=== PATIENT | male | born 1975 ===

== ENCOUNTER → 2020-08-24 09:45 | Outpatient (BNVA) | payer OTHER, SELFPAY | PROVIDERS: PCP Internal Medicine; Referring Provider Internal Medicine; Visit Provider Nurse Practitioner | DX: K58.1 Irritable bowel syndrome with constipation (principal); K21.9 Gastro-esophageal reflux disease without esophagitis | CPT/HCPCS: Q3014 ==

== ENCOUNTER → 2021-02-22 09:51 | Outpatient (BNVA) | payer MEDICARE, MEDICAID, SELFPAY | PROVIDERS: PCP Internal Medicine; Visit Provider Nurse Practitioner | DX: Z13.89 Encounter for screening for other disorder (principal) | CPT/HCPCS: Q3014 ==

== ENCOUNTER → 2021-08-24 10:11 | Outpatient (BNVA) | payer OTHER, SELFPAY | PROVIDERS: PCP Physician Assistant; Referring Provider Physician Assistant; Visit Provider Nurse Practitioner | DX: K21.9 Gastro-esophageal reflux disease without esophagitis (principal); K58.1 Irritable bowel syndrome with constipation | CPT/HCPCS: 99212 ==

== ENCOUNTER → 2022-02-22 09:02 | Outpatient (BNVA) | payer MEDICARE, MEDICAID, SELFPAY | PROVIDERS: PCP Physician Assistant; Referring Provider Physician Assistant; Visit Provider Nurse Practitioner | DX: Z12.11 Encounter for screening for malignant neoplasm of colon (principal); K21.9 Gastro-esophageal reflux disease without esophagitis; K58.1 Irritable bowel syndrome with constipation | CPT/HCPCS: 99212 ==

== ENCOUNTER 2022-02-23 07:54 | Outpatient (REF) | payer OTHER, MEDICAID, SELFPAY ==
[2022-02-23 08:17] LABS: MANUAL DIFF FLAG NO
[2022-02-23 08:38] LABS: Basophils Percent Auto 0.4 % (0-2); Eosinophils Percent Auto 0.6 % (0-4); Hematocrit 43.2 % (42.0-52.0); Hemoglobin 14.4 g/dl (14.0-18.0); Imm Gran Abs Auto 0.02 X10*3/uL (0.00-0.03); Imm Gran Pct Auto 0.4 % (0.0-0.4); Lymphocytes Absolute Auto 1.3 X10*3/uL (1.2-4.9); Mean Corpuscular HGB Conc 33.3 g/dl (31.0-36.0); Mean Corpuscular Hemoglobin 29.1 pg (27.0-33.0); Mean Corpuscular Volume 87.4 fL (80.0-98.0); Mean Platelet Volume 9.8 fL (9.4-12.4); Monocytes Absolute Auto 0.6 X10*3/uL (0.1-1.2); Neutrophils Absolute Auto 3.2 x10*3/uL (2.0-8.3); Neutrophils Percent Auto 61.6 % (45-73); Platelet Count 197 X10*3/uL (160-400); Red Blood Count 4.94 X10*6/uL (4.60-5.80); White Blood Count 5.2 X10*3/uL (4.8-10.8)
[2022-02-23 09:10] LABS: Alanine Aminotransferase 21 U/L (0-40); Albumin Level 4.3 g/dL (3.5-5.0); Alkaline Phosphatase 98 U/L (39-117); Anion Gap 11 (12-20); Aspartate Amino Transferase 21 U/L (5-37); Bilirubin Total 0.5 mg/dL (0.0-1.0); Blood Urea Nitrogen 9 mg/dL (9-16); Calcium 9.3 mg/dL (8.4-10.2); Carbon Dioxide 28 mmol/L (22-29); Chloride 103 mmol/L (96-108); Estimated Glomerular Filt Rate > 60; Glucose Random 111 mg/dL (60-115); Potassium 3.8 mmol/L (3.3-5.1); Sodium 138 mmol/L (135-145); Total Protein 7.2 g/dL (6.5-8.0)
== END 2022-02-23 07:55 | disposition home or self-care (01) ==
LOC: HO.LAB 07:54
PROVIDERS: PCP Internal Medicine; Visit Provider Nurse Practitioner
DX: Z12.11 Encounter for screening for malignant neoplasm of colon (principal)
CPT/HCPCS: 36415; 80053; 85025

== ENCOUNTER 2022-09-06 07:26 | Day surgery (SDC) | payer OTHER, SELFPAY ==
--- NOTE | 2022-09-05 12:47 | P.CONAN_ITS ---
Documented by User: Rosi Juarez NP 09/05/22 12:48 HPI - Anesthesia Eval Consult details Narrative: 47yo M for Colonoscopy PMF Active Problems Active Problems: All Active Problems (Updated 08/31/22 @ 15:20 by Tiseha Holt, RN) Irritable bowel syndrome with constipation (Acute) GERD (gastroesophageal reflux disease) (Acute) Annual physical exam (Acute) Screening for diabetes mellitus (DM) (Acute) Screening for hypothyroidism (Acute) Screening for hypercholesterolemia (Acute) Colon cancer screening (Acute) Cerebral palsy (Acute) Past Medical History Medical History (Updated 08/31/22 @ 15:20 by Tiesha Holt RN) Cerebral palsy GERD (gastroesophageal reflux disease) IBS (irritable bowel syndrome) Family History Family History (Updated 07/19/22 @ 09:33 by Tyrone Chang PA-C) Father Myocardial infarction Mother Diabetes mellitus HTN (hypertension) Myocardial infarction, Onset Age: 66 Brother Cerebral palsy Maternal Grandfather Skin cancer Maternal Grandmother Myocardial infarction Surgical History Surgical History (Updated 09/06/22 @ 07:37 by Leslie Bassett RN) History of esophagogastroduodenoscopy (EGD) History of surgery on lower extremity No history of previous surgery Social History Social History (Updated 07/19/22 @ 09:33 by Tyrone Chang PA-C) Household Members: Family Housing: House Alcohol intake: never Patient Tobacco Use Status: Never used Tobacco Tobacco use type: Cigarette e-Cigarette/Vaping Use: Never Used Second Hand Smoke Exposure: No service: No Current occupational status: disabled Meds Allergies Allergy/AdvReac Type Severity Reaction Status Date / Time No Known Allergies Allergy Verified 08/31/22 15:21 [No Known Allergies*] Exam Exam Date and Time: September 05, 2022 1247 Pertinent Lab Results Pertinent Lab Results: Laboratory Tests 02/23/22 02/23/22 08:15 08:15 WBC 5.2 Hgb 14.4 Hct 43.2 Plt Count 197 Sodium 138 Potassium 3.8 Chloride 103 Carbon Dioxide 28 BUN 9 Creatinine 0.79 Assessment and Plan Assessment Anesthesia Assessment: Chart Reviewed Documented by User: Chase Wood MD 09/06/22 19:46 [facility] Past Medical History Medical History (Updated 08/31/22 @ 15:20 by Tiesha Holt, TUAN) Cerebral palsy GERD (gastroesophageal reflux disease) IBS (irritable bowel syndrome) Functional capacity: wheelchair bound Family History Family History (Updated 07/19/22 @ 09:33 by Tyrone Chang PA-C) Father Myocardial infarction Mother Diabetes mellitus HTN (hypertension) Myocardial infarction, Onset Age: 66 Brother Cerebral palsy Maternal Grandfather Skin cancer Maternal Grandmother Myocardial infarction Family history of problems with anesthesia: No Surgical History Surgical History (Updated 09/06/22 @ 07:37 by Leslie Bassett, TUAN) History of esophagogastroduodenoscopy (EGD) History of surgery on lower extremity No history of previous surgery History of Problems with Anesthesia: No Social History Social History (Updated 07/19/22 @ 09:33 by Tyrone Chang PA-C) Household Members: Family Housing: House Alcohol intake: never Patient Tobacco Use Status: Never used Tobacco Tobacco use type: Cigarette e-Cigarette/Vaping Use: Never Used Second Hand Smoke Exposure: No service: No Current occupational status: disabled Meds Allergies Allergy/AdvReac Type Severity Reaction Status Date / Time No Known Allergies Allergy Verified 08/31/22 15:21 [No Known Allergies*] Exam Airway Mallampati Class: III TM Dist: >3cm Neck ROM: Full Loose/Missing/Broken Teeth: Yes Heart: S1,S2 Lungs: b/l breath sounds Assessment and Plan Assessment Anesthesia Assessment: Anesthesia Plan Discussed Final Anesthetic Review Family History of Problems with Anesthesia: No History of Problems with Anesthesia: No NPO: Yes ASA Class: III Final Preanesthetic Review: Meds/Allgs Chart Reviewed, Consent Obtained/Reviewed and Anes Risks/Benef Reviewed Patient Risk: Intermediate Procedure Risk: Intermediate Anesthetic Plan Anesthetic Plan: MAC: Disposition: Standard PACU
[2022-09-06 07:34] VITALS: BMI 25.4
[2022-09-06 07:59] VITALS: BP 133/80; PULSE 99; RESP 15; TEMP 36.6; O2SAT 99
[2022-09-06] MEDS: Lactated Ringers 1,000 ML 100 ML IVCONT (08:01)
--- NOTE | 2022-09-06 08:29 | MHC.SHP ---
Pre-Procedural Eval Section A Date of Service: 09/06/22 Section B Chief Complaint: screening Relevant Family History (Specify if Yes): No Relevant Social History: None Present Medications: see Short Stay Collaborative assessment Medical History: Significant History (Cerebral palsy GERD (gastroesophageal reflux disease) IBS (irritable bowel syndrome)) History of Previous Operations: Relevant previous surgery/procedure and date(s) Allergies: Allergies Allergy/AdvReac Type Severity Reaction Status Date / Time No Known Allergies Allergy Verified 08/31/22 15:21 [No Known Allergies*] Review of Systems Sugical H&P ROS: Negative: Constitution, Cardiovascular, Respiratory, Neurological, Psychiatric, Hem-Onc, Allergic/Immunologic, Gastrointestinal, Genitourinary, Musculoskeletal, Integumentary, Endocrine and Eyes/Ears/Nose/Throat Exam Surgical H&P Exam: Normal: HEENT, Normal: Heart, Normal: Lungs, Normal: Extremities, Normal: Abdomen and Normal: Skin and Significant Findings: Neurological (reduced mobility ) Plan Diagnosis/Plan: Unchanged I have reviewed the history and physical and performed a pertinent physical examination on my patient. No changes have occurred unless specified.
--- NOTE | 2022-09-06 08:36 | P.OP_ITS ---
Operative Note Operative Note Date of Service: 09/06/22 Narrative: Operative Information Procedure Description: Colonoscopy Indication: screening Anesthesia: MAC COLONOSCOPY Instrument: Olympus variable stiffness pediatric scope 190L Colonoscopy Monitoring: Vital signs and clinical assessment, continuous EKG monitoring, Pulse oximetry, Carbon Dioxide monitoring and blood pressure monitoring were done throughout the procedure. Colon withdrawal time was 8 minutes. Procedure: The patient was placed in the left lateral decubitis position and pre-procedure medications were administered. After a digital rectal examination of the ano-rectum, the video colonoscope was inserted into the rectum and advanced through the colon to the cecum/TI. The colonoscope was slowly withdrawn in a retrograde panoramic fashion and the colon mucosa was carefully examined including a retroflexed view of the rectum. Findings and interventions are described below. Procedure Difficulty: moderate due to tight sigmoid Findings: Terminal Ileum-normal Cecum:normal Ascending Colon: normal Transverse Colon -normal Descending Colon:normal Sigmoid Colon: x1 sessile polyp 10-12 mm removed with cold snare and another 8- 10 mm sessile polyp removed with cold forceps Rectum: Retroflexion with small internal hemorrhoids, grade I Anorectum - normal Colon preparation: [place] Bowel Preparation Scale Right colon; 2 Transverse colon: 3 Left colon; 3 (0 = Unprepared colon segment with mucosa not seen due to solid stool that cannot be cleared. 1 = Portion of mucosa of the colon segment seen, but other areas of the colon segment not well seen due to staining, residual stool and/or opaque liquid. 2 = Minor amount of residual staining, small fragments of stool and/or opaque liquid, but mucosa of colon segment seen well. 3 = Entire mucosa of colon segment seen well with no residual staining, small fragments of stool or opaque liquid) Impression and Post Procedure Diagnosis: polyps internal hemorrhoids Plan: High fiber diet leaflet Avoid straining at stool, epsom salts and sitz bath, anusol supps or cream Repeat Colonoscopy in 3 years deu to adenomatous appearing polyps or earlier if clinically indicated Above findings were reviewed with the patient and relevant handouts were provided if indicated.
[2022-09-06 09:06] VITALS: BP 106/63; PULSE 104; RESP 16; TEMP 36.6; O2SAT 98
[2022-09-06 09:21] VITALS: BP 108/73; PULSE 94; RESP 16; O2SAT 100
[2022-09-06 09:36] VITALS: BP 112/75; PULSE 95; RESP 16; O2SAT 99
[2022-09-06 09:49] VITALS: BP 131/75; PULSE 94; RESP 18; TEMP 36.5; O2SAT 100
== END 2022-09-06 10:30 | disposition home or self-care (01) ==
PROVIDERS: PCP Internal Medicine; Visit Provider Internal Medicine Gastroenterology
PROC: 0DJD8ZZ Inspection of Lower Intestinal Tract, Via Natural or Artificial Opening Endoscopic (ICD-10-PCS; CPT 45378; principal; 2022-09-06 08:30)
DX: Z12.11 Encounter for screening for malignant neoplasm of colon (principal); D12.5 Benign neoplasm of sigmoid colon; K64.0 First degree hemorrhoids; K21.9 Gastro-esophageal reflux disease without esophagitis; K58.1 Irritable bowel syndrome with constipation; G80.9 Cerebral palsy, unspecified; Z79.899 Other long term (current) drug therapy
CPT/HCPCS: 45385; 45380; 88305

== ENCOUNTER → 2022-09-20 10:22 | Outpatient (BNVA) | payer OTHER, SELFPAY | PROVIDERS: PCP Internal Medicine; Visit Provider Nurse Practitioner | DX: D12.6 Benign neoplasm of colon, unspecified (principal); K21.9 Gastro-esophageal reflux disease without esophagitis; K58.1 Irritable bowel syndrome with constipation; Z98.890 Other specified postprocedural states | CPT/HCPCS: 99212 ==

== ENCOUNTER → 2023-03-14 09:49 | Outpatient (BNVA) | payer OTHER, SELFPAY | PROVIDERS: Visit Provider Nurse Practitioner | DX: K58.1 Irritable bowel syndrome with constipation (principal); K21.9 Gastro-esophageal reflux disease without esophagitis; D12.6 Benign neoplasm of colon, unspecified; Z98.890 Other specified postprocedural states | CPT/HCPCS: 99212 ==

== ENCOUNTER 2023-10-10 09:51 | Outpatient (AMB) | payer OTHER, SELFPAY ==
[2023-10-10 09:54] VITALS: BP 132/77; PULSE 89; BMI 22.2
--- NOTE | 2023-10-10 09:54 | MHC.OFFVIS ---
Intake Vital Signs 10/10/23 09:54 Height 5 ft 2 in Weight 121 lb 4.068 oz BMI 22.2 BP 132/77 Blood Pressure Location Lt brachial Position Sitting Pulse 89 Intake Visit Reasons: 6 month fu Intake Note: Patient presents to in office visit today in 6 months follow up. CC: Patient denies having any GI issues today. [employer]ing Cutting Machine Operator Required: Yes Accompanied by: Sister Allergies No Known Allergies [No Known Allergies*] Allergy (Verified 10/10/23 09:59) HPI 6 month fu HPI Details Assessment & Plan (1) Irritable bowel syndrome with constipation: Code(s): K58.1 - Irritable bowel syndrome with constipation Plan: Dominican #Sister translates per pt request He continues to do well with his IBS and GERD on is pantoprazole and dicyclomine. A return office visit in 6 months (2) GERD (gastroesophageal reflux disease): Code(s): K21.9 - Gastro-esophageal reflux disease without esophagitis Qualifiers: Esophagitis presence: without esophagitis Qualified Code(s): K21.9 - Gastro-esophageal reflux disease without esophagitis (3) Tubular adenoma of colon: Comment: 2021 scope repeat in 3 years aeb Code(s): D12.6 - Benign neoplasm of colon, unspecified (4) H/O colonoscopy: Code(s): Z98.890 - Other specified postprocedural states Medications: Refilled pantoprazole 40 mg PO DAILY 90 tabs 2RF K21.9 - Gastro-eso phageal reflux dis ease without esoph agitis dicyclomine 20 mg PO QID 360 t abs 6RF K58.1 - Irritable bowel syndrome wit h constipation, K2 1.9 - Gastro-esoph ageal reflux disea se without esophag itis TODAY'S VISIT Dominican #Wyatt and Lynnette-though his sister usually translates for him and she is with him today He continues to do very well on his pantoprazole and his dicyclomine. He remains satisfied with his GI regimen. He will be due in 2024 for repeat colonoscopy. Return office visit in 6 months [facility] Medical History IBS (irritable bowel syndrome) GERD (gastroesophageal reflux disease) Cerebral palsy Surgical History (Updated 10/10/23 @ 11:06 by RAJEEV Bellamy) History of colonoscopy History of surgery on lower extremity History of esophagogastroduodenoscopy (EGD) Family History Father Myocardial infarction Mother Diabetes mellitus HTN (hypertension) Myocardial infarction, Onset Age: 66 Brother Cerebral palsy Maternal Grandfather Skin cancer Maternal Grandmother Myocardial infarction Social History Household Members: Family Housing: House Alcohol intake: never Patient Tobacco Use Status: Never used Tobacco Tobacco use type: Cigarette e-Cigarette/Vaping Use: Never Used Second Hand Smoke Exposure: No service: No Current occupational status: disabled Review of Systems Const Denies fatigue, Denies fever(s), Denies night sweats, Denies poor appetite and Denies weight loss ENT Reports Normal hearing present, Denies dysphagia, Denies odynophagia, Denies throat swelling and Denies tongue swelling Card Reports no additional complaints Resp Reports no additional complaints GI Denies abdominal pain, Denies melena, Denies bloating, Denies hematochezia, Denies constipation, Reports GI cramping, Denies dysphagia, Denies excessive flatus, Denies early satiety, Reports heartburn, Denies diarrhea, Denies nausea, Denies odynophagia, Denies vomiting and Denies hematemesis Musc Reports abnormal gait Skin/Breast Denies pruritus, Denies lesions, Denies rash and Denies jaundice Neuro Reports Normal hearing present, Denies Abnormal speech present and Reports abnormal gait Endo Denies fatigue Aller/Immun Denies throat swelling and Denies tongue swelling Physical Exam Vital Signs: Last Vital Signs Pulse 89 10/10/23 09:54 BP 132/77 10/10/23 09:54 BMI result Body Mass Index 22.2 Const General: cooperative, no acute distress, well developed and well groomed Nutritional Appearance: well nourished, obese and overweight Orientation/consciousness: oriented to person, oriented to place and oriented to time Limitations: language barrier and ambulation with walker HEENT Head: Yes normocephalic and Yes atraumatic Eyes General: appearance normal, both eyes and all related structures Pupils: Equal, round and reactive pupils present Neck Neck: Yes normal visual inspection and Yes no lymphadenopathy Thyroid: Thyroid normal Resp Effort & Inspection: normal respiratory effort and able to speak in complete sentences Auscultation: clear to auscultation bilaterally Cardio Rate: regular rate Rhythm: regular rhythm Heart sounds: Normal, physiologic split S2 sound present Peripheral pulses: radial pulses present and posterior tibial pulses present GI Inspection: No distended and No Abdominal panniculus present Palpation (GI): Soft to palpation, nontender, no guarding, not rigid and No hepatosplenomegaly present Percussion: Yes normal to percussion Auscultation: normal bowel sounds Rectal Exam - Male: Yes deferred Skin General skin exam: no rashes or lesions noted, turgor normal, skin not dry, no jaundice, No spider nevi and no striae Rashes: no rashes Nails: normal Neuro General: oriented to person, oriented to place and oriented to time Cranial nerves: Yes Equal, round and reactive pupils present and Yes Normal hearing present Speech: No Abnormal speech present Extrem General: Yes normal to inspection, No clubbing, No cyanosis and No edema Psych Appearance: grossly normal and well kempt Mental Status: mental status grossly normal Speech and movement: Normal speech and movement present Affect: normal affect Attitude: cooperative Thought process: Normal thought process present and not confabulating Thought content: Normal thought content present Insight: Limited insight present (Psych) Judgement: Limited judgement present (Psych) Assessment & Plan Assessment & Plan (1) GERD (gastroesophageal reflux disease): Code(s): K21.9 - Gastro-esophageal reflux disease without esophagitis Qualifiers: Esophagitis presence: without esophagitis Qualified Code(s): K21.9 - Gastro-esophageal reflux disease without esophagitis (2) Irritable bowel syndrome with constipation: Code(s): K58.1 - Irritable bowel syndrome with constipation (3) Tubular adenoma of colon: Comment: 2021 scope repeat in 3 years aeb Code(s): D12.6 - Benign neoplasm of colon, unspecified Plan Dominican #Wyatt and Tachira-though his sister usually translates for him and she is with him today He continues to do very well on his pantoprazole and his dicyclomine. He remains satisfied with his GI regimen. He will be due in 2024 for repeat colonoscopy. Return office visit in 6 months Medications: Refilled dicyclomine 20 mg PO QID 360 tabs 6RF K21.9 - Gastro-esophageal reflux disease without esophagitis, K58.1 - Irritable bowel syndrome with constipation pantoprazole 40 mg PO DAILY 90 tabs 2RF K21.9 - Gastro-esophageal reflux disease without esophagitis Coding Level of Care Code Est Pt Level 3 (61602) Diagnoses Gastroesophageal reflux disease without esophagitis K21.9 Esophagitis presence: without esophagitis Irritable bowel syndrome with constipation K58.1 Tubular adenoma of colon D12.6
== END 2023-10-10 10:04 | disposition home or self-care (01) ==
PROVIDERS: PCP Internal Medicine; Visit Provider Nurse Practitioner
DX: K21.9 Gastro-esophageal reflux disease without esophagitis (principal); K58.1 Irritable bowel syndrome with constipation; D12.6 Benign neoplasm of colon, unspecified
CPT/HCPCS: 99213

== ENCOUNTER → 2023-10-10 09:51 | Outpatient (BNVA) | payer OTHER, SELFPAY | PROVIDERS: PCP Internal Medicine; Visit Provider Nurse Practitioner | DX: K21.9 Gastro-esophageal reflux disease without esophagitis (principal); K58.1 Irritable bowel syndrome with constipation; D12.6 Benign neoplasm of colon, unspecified | CPT/HCPCS: 99212 ==

== ENCOUNTER 2023-11-23 11:05 | Outpatient (AMB) | payer OTHER, SELFPAY ==
--- NOTE | 2023-11-23 11:07 | MHC.PC.OV ---
Vital Signs 11/23/23 11:08 Height 5 ft 2 in Weight 120 lb BMI 21.9 BP 120/80 Blood Pressure Location Lt brachial Position Sitting Intake Visit Reasons: Toe Discoloration Intake Note: Patient here c/o right foot toe/nail discoloration Manager Mental Health Required: No Accompanied by: Sister Allergies No Known Allergies [No Known Allergies*] Allergy (Verified 11/23/23 11:29) Medication List - Last Reconciled 11/23/23 by Nano Ramirez MD dicyclomine 20 mg PO QID pantoprazole 40 mg PO DAILY Shower Chair As directed Tobacco use date assessed: 11/23/23 Dental Screening Dental Screen Date: 11/23/23 Did you have a dental visit in the last 12 months?: Yes Did you have a dental problem in the last 6 months where you did not have access to dental care?: No Was dental information given to patient?: Patient has dentist HPI HPI Comments History of Present Illness Details This is a 48-year-old male with GERD and cerebral palsy that comes today accompanied by causing which is the sales agent casualty insurance complaining of right foot pain more prominent in the 5th toe when walking and onychogryphosis. The 5th toe is mildly red but not swollen. The pain has been present for few days. No previous trauma. He has cerebral palsy and walks with a walker with no strength in lower limbs. GERD stable with PPIs. Toenails are deformed and thick due to onychogriposis and is really hard to cut them and will be refer to podiatry. [facility] Medical History (Updated 11/23/23 @ 11:34 by Nano Ramirez MD) IBS (irritable bowel syndrome) GERD (gastroesophageal reflux disease) Cerebral palsy Surgical History History of colonoscopy History of surgery on lower extremity History of esophagogastroduodenoscopy (EGD) Family History (Updated 11/23/23 @ 11:15 by JHON Perez) Father Myocardial infarction Mother Diabetes mellitus HTN (hypertension) Myocardial infarction, Onset Age: 66 Brother Cerebral palsy Maternal Grandfather Skin cancer Maternal Grandmother Myocardial infarction Social History Household Members: Family Housing: House Alcohol intake: never Patient Tobacco Use Status: Never used Tobacco Tobacco use type: Cigarette e-Cigarette/Vaping Use: Never Used Second Hand Smoke Exposure: No service: No Current occupational status: disabled Cognitive needs: Yes Hearing needs: No Vision needs: No Questionnaire PHQ-9 Over the last 2 weeks, how often have you been bothered by any of the following problems? 1. Little interest or pleasure in doing things: not at all 2. Feeling down, depressed, or hopeless: not at all 3. Trouble falling or staying asleep, or sleeping too much: not at all 4. Feeling tired or having little energy: not at all 5. Poor appetite or overeating: not at all 6. Feeling bad about yourself - or that you are a failure or have let yourself or your family down: not at all 7. Trouble concentrating on things, such as reading the newspaper or watching television: not at all 8. Moving or speaking so slowly that other people could have noticed. Or the opposite - being so fidgety or restless that you have been moving around a lot more than usual: not at all 9. Thoughts that you would be better off or of hurting yourself in some way: not at all Total score: 0 Depression Screening Interpretation: Negative Depression Screening Done: Yes 58389 - PHQ-9 Billing: Yes Source: Developed by Drs. Tevin Mg, Claudia Douglas, Jet Urbano and colleagues, with an educational desiree from [employer]. Thrive Questionnaire Date Thrive assessed: 11/23/23 I am a: Patient What is your living situation today?: I have a steady place to live Within the past 12 months, did the food you bought not last and you didn't have the money to get more?: Never true Within the past 12 months, did you worry whether your food would run out before you got money to buy more?: Never true Do you have trouble paying for medicines?: No Do you have trouble getting transportation to medical appointments?: No Do you have trouble paying your heating and electricity bill?: No Do you have trouble taking care of your child, family member or friend?: No Do you have trouble with day-to-day activities such as bathing, preparing meals, shopping, managing finances, etc.?: Yes Are you currently unemployed and looking for a job?: No Are you interested in more education?: No Please select the resources that you would like help with: None Currently or been in a relationship where the following occur: no concerns reported THRIVE Score: 0 AUDIT C Alcohol Use Questionnaire (AUDIT-C) 1. How often do you have a drink containing alcohol?: Never Total Score: 0 ALANNA-7 AMB Questionnaire ALANNA-7 Date ALANNA - 7 assessed: 11/23/23 Feeling nervous, anxious, or on edge: 0 = Not at all Not being able to stop or control worryin = Not at all Worrying too much about different things: 0 = Not at all Trouble relaxin = Not at all Being so restless that it is hard to sit still: 0 = Not at all Becoming easily annoyed or irritable: 0 = Not at all Feeling afraid as if something awful might happen: 0 = Not at all Total ALANNA-7 score (0-4 normal; 5-9 mild; 10-14 moderate; 15-21 severe): 0 Source: Developed by Drs. Tevin Mg, Claudia Douglas, Jet Urbano and colleagues, with an educational desiree from [employer]. ALANNA-7 Assessment Billing ALANNA-7 Assessment Tool: ALANNA-7 Assessment 27093 Review of Systems Const All systems reviewed & are unremarkable except as noted in HPI and below Eyes Reports no additional complaints, Denies change in vision and Denies other visual disturbances Card Denies chest pain at rest, Denies chest pain with activity, Denies edema, Denies irregular heart rhythm, Denies claudication, Denies dyspnea, Denies dyspnea on exertion, Denies orthopnea, Denies paroxysmal nocturnal dyspnea and Denies slow heart rate Resp Denies cough, Denies dyspnea and Denies dyspnea on exertion GI Denies abdominal pain, Denies change in bowel habits, Denies excessive flatus, Denies nausea and Denies vomiting Denies urinary hesitancy, Denies urinary incontinence and Denies urinary urgency Musc Denies abnormal gait, Denies atrophy, Denies deformity and Denies limited range of motion Skin/Breast Denies bleeding lesions, Denies changing lesions and Denies rash Neuro Denies abnormal gait, Denies behavioral changes and Denies lack of coordination Psych Denies behavioral changes Physical exam (Primary Care) Vital Signs: Last Vital Signs BP 120/80 11/23/23 11:08 BMI result Body Mass Index 21.9 Tobacco/Smoking Status: Tobacco use Status Tobacco use date assessed 11/23/23 11/23/23 11:16 Patient Tobacco Use Status Never used Tobacco 11/23/23 11:16 Tobacco use type Cigarette 11/23/23 11:16 e-Cigarette/Vaping Use Never Used 11/23/23 11:16 PHQ-9: PHQ-9 Score PHQ-9: Total score 0 11/23/23 11:35 Depression Screening Interpretation: Negative Thrive Assessment: Date of Thrive Assessment Date Thrive assessed 11/23/23 11/23/23 11:16 Currently or been in a relationship where the following occur: no concerns reported Const Limitations: ambulation with walker Eyes General: appearance normal, both eyes and all related structures Eyelids: Yes eyelids normal Conjunctivae: conjunctivae normal Neck Neck: Yes normal visual inspection and Yes supple Resp Effort & Inspection: normal respiratory effort Auscultation: clear to auscultation bilaterally Cardio Jugular venous distension: no JVD Rate: regular rate Rhythm: regular rhythm Heart sounds: S1 normal heart sound present and S2 normal heart sound present Psych Appearance: grossly normal Assessment and Plan Assessment & Plan (1) Cerebral palsy: Code(s): G80.9 - Cerebral palsy, unspecified Qualifiers: Cerebral palsy type: unspecified type Qualified Code(s): G80.9 - Cerebral palsy, unspecified Plan: Continue the use of a walker. (2) Onychogryposis of toenail: Code(s): L60.2 - Onychogryphosis Plan: Referred to Podiatry. (3) Right foot pain: Code(s): M79.671 - Pain in right foot Plan: X-ray ordered. (4) GERD (gastroesophageal reflux disease): Code(s): K21.9 - Gastro-esophageal reflux disease without esophagitis Qualifiers: Esophagitis presence: without esophagitis Qualified Code(s): K21.9 - Gastro-esophageal reflux disease without esophagitis Plan: Continue PPIs. Orders: Orders XR foot RT 2V Today M79.671 - Pain in right foot Lipid Panel Today E78.5 - Hyperlipidemia, unspecified Vitamin D 25-OH Total Today E55.9 - Vitamin D deficiency, unspecified Comprehensive [place]. Panel Fast Today K21.9 - Gastro-esophageal reflux disease without esophagitis Referrals Podiatry Referral L60.2 - Onychogryphosis, M79.671 - Pain in right foot Medications: New naproxen 250 mg PO BID PRN 10 tabs 0RF pain 5 days Coding Level of Care Code Est Pt Level 4 (65898) Diagnoses Cerebral palsy, unspecified type G80.9 Cerebral palsy type: unspecified type Onychogryposis of toenail L60.2 Right foot pain M79.671 Gastroesophageal reflux disease without esophagitis K21.9 Esophagitis presence: without esophagitis Additional Codes ALANNA-7 Assessment Billing - ALANNA-7 Assessment Tool: ALANNA-7 Assessment 63064 ([id number]) Time Spent (min) 22
[2023-11-23 11:08] VITALS: BP 120/80; BMI 21.9
== END 2023-11-23 11:37 | disposition home or self-care (01) ==
PROVIDERS: PCP Internal Medicine; Visit Provider Internal Medicine
DX: G80.9 Cerebral palsy, unspecified (principal); L60.2 Onychogryphosis; M79.671 Pain in right foot; K21.9 Gastro-esophageal reflux disease without esophagitis
CPT/HCPCS: 99214

== ENCOUNTER 2023-11-23 11:45 | Outpatient (REF) | payer OTHER, SELFPAY ==
--- NOTE | ~2023-11-23 | XR_ITS ---
EXAMINATION: XR FOOT, RIGHT CLINICAL INFORMATION: Pain in right foot. COMPARISON: None available. TECHNIQUE: AP, lateral, and oblique views of the right foot. FINDINGS: Bones are diffusely demineralized. Pes planus deformity present with associated deformity and flexion of the toes of indeterminate age and etiology. Evaluation of the toes, particularly the second, fourth and fifth toes, is limited due to flexion. Metatarsus adductus, hallux valgus with mild degenerative changes. XR/XR foot RT 2V IMPRESSION: Bones are diffusely demineralized. Pes planus deformity with associated deformity and flexion of the toes of indeterminate age and etiology. Metatarsus adductus, hallux valgus with mild degenerative changes in the first MTP joint. Recommend follow-up imaging in 10-14 days if fracture is suspected.
== END 2023-11-23 11:46 | disposition home or self-care (01) ==
LOC: HO.XRAY 11:45
PROVIDERS: PCP Internal Medicine; Visit Provider Internal Medicine
DX: M79.671 Pain in right foot (principal)
CPT/HCPCS: 73620

== ENCOUNTER 2023-11-30 07:05 | Outpatient (REF) | payer OTHER, SELFPAY ==
[2023-11-30 08:08] LABS: Alanine Aminotransferase 16 U/L (0-40); Albumin Level 4.3 g/dL (3.5-5.0); Alkaline Phosphatase 93 U/L (39-117); Anion Gap 13 (12-20); Aspartate Amino Transferase 18 U/L (5-37); Bilirubin Total 0.3 mg/dL (0.0-1.0); Blood Urea Nitrogen 12 mg/dL (9-16); Calcium 9.4 mg/dL (8.4-10.2); Carbon Dioxide 28 mmol/L (22-29); Chloride 104 mmol/L (96-108); Cholesterol 200 mg/dL (<200); Estimated Glomerular Filt Rate > 60; Glucose Fasting 120 mg/dL (60-99); HDL Cholesterol 55 mg/dL (>40); LDL Cholesterol Calculated 135 mg/dL (<100); Potassium 3.9 mmol/L (3.3-5.1); Sodium 141 mmol/L (135-145); Total Protein 7.5 g/dL (6.5-8.0); Triglycerides 53 mg/dL (<150)
== END 2023-11-30 07:06 | disposition home or self-care (01) ==
LOC: HO.LAB 07:05
PROVIDERS: PCP Internal Medicine; Visit Provider Internal Medicine
DX: K21.9 Gastro-esophageal reflux disease without esophagitis (principal); E55.9 Vitamin D deficiency, unspecified; E78.5 Hyperlipidemia, unspecified
CPT/HCPCS: 36415; 80053; 80061; 82306

== ENCOUNTER 2024-01-31 08:10 | Outpatient (AMB) | payer OTHER, SELFPAY ==
[2024-01-31 08:47] VITALS: BP 114/78; PULSE 94; O2SAT 98; BMI 22.3
--- NOTE | 2024-01-31 08:47 | A.OFFPC_ITS ---
Vital Signs 01/31/24 08:47 Height 5 ft 2 in Weight 122 lb 2.177 oz BMI 22.3 BP 114/78 Blood Pressure Location Lt brachial Position Sitting Pulse 94 Pulse Source Pulse Oximeter Pulse Oximetry (%) 98 Oxygen Delivery Method Room Air Intake Visit Reasons: Physical exam Intake Note: Patient is here today for a physical. Assembly Room Supervisor Required: No Allergies No Known Allergies [No Known Allergies*] Allergy (Verified 01/31/24 08:51) Tobacco use date assessed: 01/31/24 Dental Screening Dental Screen Date: 01/31/24 Did you have a dental visit in the last 12 months?: Yes Did you have a dental problem in the last 6 months where you did not have access to dental care?: No Was dental information given to patient?: Patient has dentist HPI Physical exam HPI Details Patient is a 49 year-old male here today for routine annual physical. He presents today with his mother whom gives most of history. Patient has a past medical history significant cerebral palsy, GERD and irritable bowel syndrome. He otherwise reports his GI symptoms from his IBS and GERD have been well controlled with current medication he is taking. Vaccines: Up-to-date with COVID vaccine, up-to-date with tetanus vaccine, need flu vaccine and will receive at day program. Colonoscopy: Colonoscopy done in 2021, polyp found to be that adenoma repeat 3 years [facility] Medical History IBS (irritable bowel syndrome) GERD (gastroesophageal reflux disease) Cerebral palsy Surgical History History of colonoscopy History of surgery on lower extremity History of esophagogastroduodenoscopy (EGD) Family History Father Myocardial infarction Mother Diabetes mellitus HTN (hypertension) Myocardial infarction, Onset Age: 66 Brother Cerebral palsy Maternal Grandfather Skin cancer Maternal Grandmother Myocardial infarction Social History Household Members: Family Housing: House Alcohol intake: never Patient Tobacco Use Status: Never used Tobacco Tobacco use type: Cigarette e-Cigarette/Vaping Use: Never Used Second Hand Smoke Exposure: No service: No Current occupational status: disabled Cognitive needs: Yes Hearing needs: No Vision needs: No Questionnaire PHQ-9 Over the last 2 weeks, how often have you been bothered by any of the following problems? 1. Little interest or pleasure in doing things: not at all 2. Feeling down, depressed, or hopeless: not at all 3. Trouble falling or staying asleep, or sleeping too much: not at all 4. Feeling tired or having little energy: not at all 5. Poor appetite or overeating: not at all 6. Feeling bad about yourself - or that you are a failure or have let yourself or your family down: not at all 7. Trouble concentrating on things, such as reading the newspaper or watching television: not at all 8. Moving or speaking so slowly that other people could have noticed. Or the opposite - being so fidgety or restless that you have been moving around a lot more than usual: not at all 9. Thoughts that you would be better off or of hurting yourself in some way: not at all Total score: 0 Depression Screening Interpretation: Negative Depression Screening Done: Yes 20964 - PHQ-9 Billing: Yes Source: Developed by Drs. Tevin Mg, Claudia Douglas, Jet Urbano and colleagues, with an educational desiree from [employer]. Thrive Questionnaire Date Thrive assessed: 01/31/24 AUDIT C Alcohol Use Questionnaire (AUDIT-C) 1. How often do you have a drink containing alcohol?: Never 3. How often do you have six or more drinks on one occasion?: Never Total Score: 0 ALANNA-7 AMB Questionnaire ALANNA-7 Date ALANNA - 7 assessed: 01/31/24 Feeling nervous, anxious, or on edge: 0 = Not at all Not being able to stop or control worryin = Not at all Worrying too much about different things: 0 = Not at all Trouble relaxin = Not at all Being so restless that it is hard to sit still: 0 = Not at all Becoming easily annoyed or irritable: 0 = Not at all Feeling afraid as if something awful might happen: 0 = Not at all Total ALANNA-7 score (0-4 normal; 5-9 mild; 10-14 moderate; 15-21 severe): 0 Source: Developed by Drs. Tevin Mg, Claudia Douglas, Jet Urbano and colleagues, with an educational desiree from [employer]. ALANNA-7 Assessment Billing ALANNA-7 Assessment Tool: ALANNA-7 Assessment 18411 Review of Systems Const Denies body aches, Denies chills, Denies excessive sweating, Denies fatigue, Denies fever(s) and Denies headache(s) Eyes Denies blurry vision ENT Denies dysphagia, Denies vertigo, Denies dizziness, Denies headache(s), Denies hearing loss and Denies tinnitus Card Denies chest pain, Denies chest pain with activity, Denies syncope, Denies irregular heart rhythm and Denies dyspnea Resp Denies chest congestion, Denies cough, Denies hemoptysis, Denies dyspnea and Denies wheezing GI Denies abdominal pain, Denies melena, Denies hematochezia, Denies coffee ground emesis, Denies dysphagia, Denies diarrhea, Denies nausea and Denies vomiting Denies difficulty urinating, Denies dysuria, Denies urinary frequency, Denies urinary hesitancy and Denies urinary urgency Musc Denies arthralgias, Denies limited range of motion, Denies muscle cramps and De nies muscle weakness Skin/Breast Denies rash and Denies skin ulcer Neuro Denies Abnormal speech present, Denies confusion, Denies vertigo, Denies dizz iness, Denies syncope, Denies headache(s), Denies memory loss and Denies seizure-like activity Psych Denies anxiety, Denies confusion, Denies depression, Denies memory loss, Denies panic attacks and Denies paranoia Endo Denies excessive sweating, Denies fatigue, Denies flushing, Denies polydipsia and Denies polyuria Aller/Immun Denies wheezing Physical exam (Primary Care) Vital Signs: Last Vital Signs Pulse 94 01/31/24 08:47 BP 114/78 01/31/24 08:47 Pulse Ox 98 01/31/24 08:47 Oxygen Delivery Method Room Air 01/31/24 08:47 BMI result Body Mass Index 22.3 Tobacco/Smoking Status: Tobacco use Status Tobacco use date assessed 01/31/24 01/31/24 08:54 Patient Tobacco Use Status Never used Tobacco 01/31/24 08:54 Tobacco use type Cigarette 01/31/24 08:54 e-Cigarette/Vaping Use Never Used 01/31/24 08:54 PHQ-9: PHQ-9 Score PHQ-9: Total score 0 01/31/24 08:58 Depression Screening Interpretation: Negative Thrive Assessment: Date of Thrive Assessment Date Thrive assessed 01/31/24 01/31/24 08:54 Const General: cooperative, comfortable, no acute distress, alert and awake; No confusion Orientation/consciousness: oriented to person, oriented to place, patient oriented x3 and No confusion HENMT Head: Yes normocephalic Ears: external ears normal and TM's normal bilaterally Face and sinus: No sinus tenderness Mouth: Normal oral and palatal mucosa present and tongue normal Teeth and gingiva: dentition normal and gingiva normal Throat: Yes posterior oropharynx normal, Yes tonsils normal and Yes uvula midline Eyes Conjunctivae: conjunctivae normal Sclerae: sclerae normal Pupils: Equal, round and reactive pupils present EOM: EOMs intact bilaterally Direct Ophthalmoscopy: No no photophobia Neck Neck: Yes no lymphadenopathy, No tender and Yes no JVD Thyroid: Thyroid normal Carotids: no bruits Chest Chest palpation & inspection: no tenderness Resp Effort & Inspection: normal respiratory effort, no audible wheezes, not labored and no stridor Auscultation: no crackles, no rales, no rhonchi and no wheezes Cardio Jugular venous distension: no JVD Rate: regular rate, not bradycardic and not tachycardic Rhythm: regular rhythm Bruits: no carotid bruits Peripheral pulses: Peripheral pulses 2+ throughout GI Inspection: Yes normal to inspection, No abdominal wall ecchymosis and No visible herniation Palpation (GI): Soft to palpation, nontender, no guarding, not rigid and No hepatosplenomegaly present Auscultation: normoactive bowel sounds General: Yes no CVA tenderness Back/Spine/Pelvis Back: no CVA tenderness and No back tenderness Cervical Spine: cervical ROM normal Thoracic/Lumbar Spine: thoracic and lumbar spine normal to inspection, straight leg raise negative bilaterally, No thoraco-lumbar ROM limited and No lumbar spinal tenderness Skin Lesions: no lesions Rashes: no rashes Wounds: no wounds Neuro Other: NOTED WEAKNESS IN LOWER EXTREMITIES, AMBULATES WITH WALKER ASSISTANCE General: oriented to person, oriented to place, patient oriented x3, CN's II-XI intact bilaterally and No confusion Cranial nerves: Yes Equal, round and reactive pupils present and Yes Normal accommodation reflex present Cognition (Neuro): normal cognition Speech: No Abnormal speech present Gait exam (Neuro): Normal gait present Motor exam (neuro): 5/5 motor strength present throughout Extrem Right upper extremity: full ROM; no cyanosis Left upper extremity: full ROM; no cyanosis Right lower extremity: no edema Left lower extremity: no edema Psych Appearance: grossly normal Mental Status: mental status grossly normal Affect: normal affect Attitude: cooperative Thought process: Normal thought process present Assessment and Plan Assessment & Plan (1) Annual physical exam: Code(s): Z00.00 - Encounter for general adult medical examination without abnormal findings (2) Cerebral palsy: Code(s): G80.9 - Cerebral palsy, unspecified Qualifiers: Cerebral palsy type: unspecified type Qualified Code(s): G80.9 - Cerebral palsy, unspecified Plan: Continue the use of a walker. (3) GERD (gastroesophageal reflux disease): Code(s): K21.9 - Gastro-esophageal reflux disease without esophagitis Qualifiers: Esophagitis presence: without esophagitis Qualified Code(s): K21.9 - Gastro-esophageal reflux disease without esophagitis Plan: Continue PPIs with good effect. (4) Impaired glucose metabolism: Code(s): R73.09 - Other abnormal glucose Plan: Noted elevated fasting blood sugar most recent labs at 01:20. Will recheck fasting labs and include an A1c to evaluate for diabetes. Orders: Orders Hemoglobin A1c Today R73.09 - Other abnormal glucose Comprehensive Graham. Panel Fast Today R73.09 - Other abnormal glucose Patient Instructions: Goal: Reduce fasting blood sugar below 100 Barriers: Adherence to healthy eating habits Coding Level of Care Code Est Pt Prev Care 40-64y(24896) Diagnoses Annual physical exam Z00.00 Cerebral palsy, unspecified type G80.9 Cerebral palsy type: unspecified type Gastroesophageal reflux disease without esophagitis K21.9 Esophagitis presence: without esophagitis Impaired glucose metabolism R73.09 Additional Codes ALANNA-7 Assessment Billing - ALANNA-7 Assessment Tool: ALANNA-7 Assessment [id number] ([id number])
== END 2024-01-31 09:10 | disposition home or self-care (01) ==
PROVIDERS: PCP Physician Assistant; Visit Provider Physician Assistant
DX: Z00.00 Encounter for general adult medical examination without abnormal findings (principal); G80.9 Cerebral palsy, unspecified; K21.9 Gastro-esophageal reflux disease without esophagitis; R73.09 Other abnormal glucose
CPT/HCPCS: 99396

== ENCOUNTER 2024-04-23 09:48 | Outpatient (AMB) | payer OTHER, SELFPAY ==
[2024-04-23 09:51] VITALS: BP 139/87; PULSE 123; BMI 24.7
--- NOTE | 2024-04-23 09:51 | A.OFFVIS_ITS ---
Vital Signs 04/23/24 09:51 Height 5 ft 2 in Weight 135 lb BMI 24.7 BP 139/87 Blood Pressure Location Rt brachial Position Sitting Pulse 123 H Comment pt's sister stated Intake Visit Reasons: 6 months follow up Intake Note: Patient presents to in office visit today in 6 months follow up of GERD. CC: Patient denies having any GI issues today. Sailmaker Required: Yes Accompanied by: Sister Allergies No Known Allergies [No Known Allergies*] Allergy (Verified 04/23/24 09:56) HPI HPI 6 months follow up: Details: Assessment & Plan (1) GERD (gastroesophageal reflux disease): Code(s): K21.9 - Gastro-esophageal reflux disease without esophagitis Qualifiers: Esophagitis presence: without esophagitis Qualified Code(s): K21.9 - Gastro-esophageal reflux disease without esophagitis (2) Irritable bowel syndrome with constipation: Code(s): K58.1 - Irritable bowel syndrome with constipation (3) Tubular adenoma of colon: Comment: 2021 scope repeat in 3 years aeb Code(s): D12.6 - Benign neoplasm of colon, unspecified Plan Citizen [place]-though his sister usually translates for him and she is with him today He continues to do very well on his pantoprazole and his dicyclomine. He remai ns satisfied with his GI regimen. He will be due in 2024 for repeat colonoscopy. Return office visit in 6 months Medications: Refilled dicyclomine 20 mg PO QID 360 tabs 6RF K21.9 - Gastro-esophageal reflux disease without esophagitis, K58.1 - Irritable bowel syndrome with constipation pantoprazole 40 mg PO DAILY 90 tabs 2RF K21.9 - Gastro-esophageal reflux disease without esophagitis TODAY'S VISIT Citizen [place] #sister translates per pt request ([place]) He continues to do well! Due for colonoscopy next year (2024). She continues on her dicyclomine and pantoprazole remains satisfied with her GI regimen. ROV 6 mos. [facility] Medical History (Updated 04/23/24 @ 10:04 by Lacy Yuan, ANP-C) Screening for diabetes mellitus (DM) Colon cancer screening Screening for hypercholesterolemia Screening for hypothyroidism Annual physical exam IBS (irritable bowel syndrome) GERD (gastroesophageal reflux disease) Cerebral palsy Surgical History History of colonoscopy History of surgery on lower extremity History of esophagogastroduodenoscopy (EGD) Family History Father Myocardial infarction Mother Diabetes mellitus HTN (hypertension) Myocardial infarction, Onset Age: 66 Brother Cerebral palsy Maternal Grandfather Skin cancer Maternal Grandmother Myocardial infarction Social History Household Members: Family Housing: House Alcohol intake: never Patient Tobacco Use Status: Never used Tobacco Tobacco use type: Cigarette e-Cigarette/Vaping Use: Never Used Second Hand Smoke Exposure: No service: No Current occupational status: disabled Cognitive needs: Yes Hearing needs: No Vision needs: No Review of Systems Const Denies fatigue, Denies fever(s), Denies night sweats, Denies poor appetite and Denies weight loss ENT Reports Normal hearing present, Denies dental pain, Denies dysphagia, Denies hearing loss, Denies mouth pain, Denies odynophagia, Denies throat swelling, Denies tongue swelling and Reports other (Dentition adequate) Card Reports no additional complaints Resp Reports no additional complaints GI Details: Denies abdominal pain, Denies melena, Denies bloating, Denies hematochezia, Denies constipation, Reports GI cramping, Denies dysphagia, Denies excessive flatus, Denies early satiety, Reports heartburn, Denies diarrhea, Denies nausea, Denies odynophagia, Denies vomiting and Denies hematemesis Skin/Breast Denies pruritus, Denies lesions, Denies rash and Denies jaundice Neuro Reports Normal hearing present and Denies Abnormal speech present Endo Denies fatigue Aller/Immun Denies throat swelling and Denies tongue swelling Physical Exam Vital Signs: Last Vital Signs Pulse 123 H 04/23/24 09:51 BP 139/87 04/23/24 09:51 BMI result Body Mass Index 24.7 Const General: cooperative, no acute distress, well developed and well groomed Nutritional Appearance: average body habitus and well nourished Orientation/consciousness: oriented to person, oriented to place and oriented to time Limitations: language barrier HEENT Head: Yes normocephalic and Yes atraumatic Eyes General: appearance normal, both eyes and all related structures Pupils: Equal, round and reactive pupils present Neck Neck: Yes normal visual inspection and Yes no lymphadenopathy Thyroid: Thyroid normal Resp Effort & Inspection: normal respiratory effort and able to speak in complete sentences Auscultation: clear to auscultation bilaterally Cardio Rate: regular rate Rhythm: regular rhythm Heart sounds: Normal, physiologic split S2 sound present Peripheral pulses: radial pulses present and posterior tibial pulses present GI Inspection: No distended and No Abdominal panniculus present Palpation (GI): Soft to palpation, nontender, no guarding, not rigid and No hepatosplenomegaly present Percussion: Yes normal to percussion Auscultation: normal bowel sounds Rectal Exam - Male: Yes deferred Skin General skin exam: no rashes or lesions noted, turgor normal, skin not dry, no jaundice, No spider nevi and no striae Rashes: no rashes Nails: normal Neuro General: oriented to person, oriented to place and oriented to time Cranial nerves: Yes Equal, round and reactive pupils present and Yes Normal hearing present Speech: No Abnormal speech present Extrem General: Yes normal to inspection, No clubbing, No cyanosis and No edema Psych Appearance: grossly normal and well kempt Mental Status: mental status grossly normal Speech and movement: Normal speech and movement present Affect: normal affect Attitude: cooperative Thought process: Normal thought process present and not confabulating Thought content: Normal thought content present Insight: Limited insight present (Psych) Judgement: Limited judgement present (Psych) Assessment & Plan Assessment & Plan (1) Irritable bowel syndrome with constipation: Code(s): K58.1 - Irritable bowel syndrome with constipation Category: Medical (2) GERD (gastroesophageal reflux disease): Code(s): K21.9 - Gastro-esophageal reflux disease without esophagitis Category: Medical Qualifiers: Esophagitis presence: without esophagitis Qualified Code(s): K21.9 - Gastro-esophageal reflux disease without esophagitis Plan Citizen [place] #sister translates per pt request ([place]) He continues to do well! Due for colonoscopy next year (2024). She continues on her dicyclomine and pantoprazole remains satisfied with her GI regimen. ROV 6 mos. Medications: Refilled dicyclomine 20 mg PO QID 360 tabs 6RF K58.1 - Irritable bowel syndrome with constipation, K21.9 - Gastro-esophageal reflux disease without esophagitis pantoprazole 40 mg PO DAILY 90 tabs 2RF K21.9 - Gastro-esophageal reflux disease without esophagitis Coding Level of Care Code Est Pt Level 3 (00431) Diagnoses Irritable bowel syndrome with constipation K58.1 Gastroesophageal reflux disease without esophagitis K21.9 Esophagitis presence: without esophagitis
== END 2024-04-23 10:30 | disposition home or self-care (01) ==
PROVIDERS: PCP Internal Medicine; Visit Provider Nurse Practitioner
DX: K58.1 Irritable bowel syndrome with constipation (principal); K21.9 Gastro-esophageal reflux disease without esophagitis
CPT/HCPCS: 99213

== ENCOUNTER → 2024-04-23 09:48 | Outpatient (BNVA) | payer OTHER, SELFPAY | PROVIDERS: PCP Internal Medicine; Visit Provider Nurse Practitioner | DX: K21.9 Gastro-esophageal reflux disease without esophagitis (principal); K58.1 Irritable bowel syndrome with constipation; D12.6 Benign neoplasm of colon, unspecified | CPT/HCPCS: 99212 ==

== ENCOUNTER 2024-08-05 07:25 | Outpatient (AMB) | payer OTHER, SELFPAY ==
--- NOTE | 2024-08-05 08:12 | A.OFFPC_ITS ---
Vital Signs 08/05/24 08:13 Height 5 ft 2 in Weight 120 lb BMI 21.9 BP 112/70 Blood Pressure Location Lt brachial Position Sitting Intake Visit Reasons: f/u glucose metabolism Integration Engineer Required: No Accompanied by: Sister Allergies No Known Allergies [No Known Allergies*] Allergy (Verified 08/05/24 08:22) Medication List - Last Reconciled 08/05/24 by Tryone Chang PA-C cholecalciferol (vitamin D3) 25 mcg PO DAILY 90 days dicyclomine 20 mg PO QID naproxen 250 mg PO BID PRN 90 days pantoprazole 40 mg PO DAILY Shower Chair As directed [wheel chair As directed] Tobacco use date assessed: 01/31/24 Dental Screening Dental Screen Date: 01/31/24 HPI f/u glucose metabolism HPI Details Patient is a 49 year-old male here today for follow-up visit He presents today with his mother whom gives most of history. Patient has a past medical history significant cerebral palsy, GERD and irritable bowel syndrome. .. Cerebral palsy: Has good support with family. Does need a new wheelchair as his own wheelchair has broken. Needs a particular type of wheelchair. Today given a paper script to bring to a DME supplier for new wheelchair. .. He otherwise reports his GI symptoms from his IBS and GERD have been well controlled with current medication he is taking. Most recent labs showing slightly elevated fasting blood sugar and a borderline high total cholesterol. Laboratory Tests 11/30/23 07:17 Creatinine 0.77 Fasting Glucose 120 H Cholesterol 200 H LDL Cholesterol, C alc 135 H 25-OH Vitamin D To marylu 15.0 L [facility] Medical History (Updated 08/05/24 @ 08:25 by Tyrone Chang PA-C) Screening for diabetes mellitus (DM) Colon cancer screening Screening for hypercholesterolemia Screening for hypothyroidism Annual physical exam IBS (irritable bowel syndrome) GERD (gastroesophageal reflux disease) Cerebral palsy Surgical History History of colonoscopy History of surgery on lower extremity History of esophagogastroduodenoscopy (EGD) Family History Father Myocardial infarction Mother Diabetes mellitus HTN (hypertension) Myocardial infarction, Onset Age: 66 Brother Cerebral palsy Maternal Grandfather Skin cancer Maternal Grandmother Myocardial infarction Social History Household Members: Family Housing: House Alcohol intake: never Patient Tobacco Use Status: Never used Tobacco Tobacco use type: Cigarette e-Cigarette/Vaping Use: Never Used Second Hand Smoke Exposure: No service: No Current occupational status: disabled Cognitive needs: Yes Hearing needs: No Vision needs: No Questionnaire Thrive Questionnaire Date Thrive assessed: 01/31/24 ALANNA-7 AMB Questionnaire ALANNA-7 Date ALANNA - 7 assessed: 01/31/24 Source: Developed by Drs. Tevin Mg, Claudia Douglas, Jet Urbano and colleagues, with an educational desiree from [employer]. Review of Systems Const Denies headache(s) Eyes Denies loss of vision ENT Denies vertigo, Denies dizziness, Denies headache(s) and Denies sore throat Card Denies chest pain, Denies leg edema and Denies lightheadedness Resp Denies cough, Denies hemoptysis and Denies wheezing GI Denies abdominal pain, Denies melena, Denies constipation, Denies diarrhea and Denies vomiting Denies dysuria, Denies urinary frequency and Denies urinary urgency Musc Denies arthralgias, Denies joint swelling, Denies numbness and Denies tingling Neuro Denies Abnormal speech present, Denies behavioral changes, Denies vertigo, Denies dizziness, Denies headache(s), Denies loss of vision, Denies memory loss, Denies numbness and Denies tingling Psych Denies anxiety, Denies behavioral changes, Denies depression, Denies memory loss and Denies panic attacks [place]/Lymph Denies easy bleeding and Denies easy bruising Aller/Immun Denies wheezing Physical exam (Primary Care) Vital Signs: Last Vital Signs BP 112/70 08/05/24 08:13 BMI result Body Mass Index 21.9 Tobacco/Smoking Status: Tobacco use Status Tobacco use date assessed 01/31/24 08/05/24 08:12 Patient Tobacco Use Status Never used Tobacco 08/05/24 08:12 Tobacco use type Cigarette 08/05/24 08:12 e-Cigarette/Vaping Use Never Used 08/05/24 08:12 Thrive Assessment: Date of Thrive Assessment Date Thrive assessed 01/31/24 08/05/24 08:12 Const General: healthy appearing, no acute distress, alert and awake Nutritional Appearance: well nourished Orientation/consciousness: oriented to person, oriented to place and oriented to time HENMT Ears: TM's normal bilaterally General nose exam: Normal nasal mucous membranes and turbinates present Eyes Conjunctivae: conjunctivae normal Sclerae: sclerae normal Pupils: Equal, round and reactive pupils present Neck Neck: Yes no lymphadenopathy and Yes no JVD Thyroid: Thyroid normal Carotids: no bruits Resp Effort & Inspection: normal respiratory effort and not tachypneic Auscultation: no crackles, no rales, no rhonchi and no wheezes Cardio Rate: regular rate Rhythm: regular rhythm Heart sounds: no murmurs and normal S1 and S2 GI Palpation (GI): Soft to palpation, nontender, no hepatomegaly and no splenomegaly Auscultation: normal bowel sounds Skin General skin exam: no rashes or lesions noted and dry skin Neuro General: oriented to person, oriented to place and oriented to time Cranial nerves: Yes Equal, round and reactive pupils present Speech: No Abnormal speech present Gait exam (Neuro): Normal gait present Motor exam (neuro): no tremor noted Extrem Right upper extremity: full ROM Left upper extremity: full ROM Right lower extremity: full ROM; no edema Left lower extremity: full ROM; no edema Psych Mental Status: mental status grossly normal Speech and movement: Normal speech and movement present Affect: normal affect Attitude: cooperative Thought process: Normal thought process present Coding Level of Care Code Est Pt Level 4 (67941) Diagnoses Cerebral palsy, unspecified type G80.9 Cerebral palsy type: unspecified type Borderline high cholesterol E78.9 Impaired glucose metabolism R73.09 Irritable bowel syndrome with constipation K58.1 Assessment & Plan Assessment & Plan (1) Cerebral palsy: Code(s): G80.9 - Cerebral palsy, unspecified Category: Medical Qualifiers: Cerebral palsy type: unspecified type Qualified Code(s): G80.9 - Cerebral palsy, unspecified Plan: Patient continues with the use of walker and a wheelchair. Family notes the needs a new wheelchair as his old wheelchair is broken. (2) Borderline high cholesterol: Code(s): E78.9 - Disorder of lipoprotein metabolism, unspecified Category: Medical Plan: Patient's most recent lipid panel showing borderline high total cholesterol. Will continue to work on lifestyle and dietary modifications. Will recheck fasting lipid panel before upcoming annual physical. (3) Impaired glucose metabolism: Code(s): R73.09 - Other abnormal glucose Category: Medical Plan: Patient's most recent fasting blood sugars slightly elevated. Will check an A1c. He will work on lifestyle and dietary modifications. (4) Irritable bowel syndrome with constipation: Code(s): K58.1 - Irritable bowel syndrome with constipation Category: Medical Plan: Patient reports his irritable bowel syndrome symptoms have been fairly stable. Does have dicyclomine and pantoprazole to which he uses with good effect. Medications: Changed From [wheel chair] As directed 1 ea 0RF G80.9 - Cerebral palsy, unspecified To [wheel chair] NEED FOR [employer] 5VX 1 ea 0RF G80.9 - Cerebral palsy, unspecified
[2024-08-05 08:13] VITALS: BP 112/70; BMI 21.9
== END 2024-08-05 08:37 | disposition home or self-care (01) ==
LOC: HO.HMCH 07:25
PROVIDERS: PCP Internal Medicine; Visit Provider Physician Assistant
DX: G80.9 Cerebral palsy, unspecified (principal); E78.9 Disorder of lipoprotein metabolism, unspecified; R73.09 Other abnormal glucose; K58.1 Irritable bowel syndrome with constipation

== ENCOUNTER → 2024-08-05 07:25 | Outpatient (BNVA) | payer OTHER, SELFPAY | PROVIDERS: PCP Internal Medicine; Visit Provider Physician Assistant | DX: G80.9 Cerebral palsy, unspecified (principal); E78.9 Disorder of lipoprotein metabolism, unspecified; R73.09 Other abnormal glucose; K58.1 Irritable bowel syndrome with constipation | CPT/HCPCS: 99212 ==

== ENCOUNTER 2024-11-05 07:50 | Outpatient (REF) | payer OTHER, SELFPAY ==
[2024-11-08 12:28] LABS: TS Negative Control Passed; TS Panel A 1; TS Panel B 0; TS Positive Control Passed; TSpotTB Negative (Negative)
== END 2024-11-05 07:51 | disposition home or self-care (01) ==
LOC: HO.LAB 07:50
PROVIDERS: Internal Medicine; PCP Physician Assistant; Visit Provider Physician Assistant
DX: Z11.1 Encounter for screening for respiratory tuberculosis (principal)
CPT/HCPCS: 36415; 86481

== ENCOUNTER 2025-01-29 10:22 | Outpatient (AMB) | payer OTHER, SELFPAY ==
[2025-01-29 10:23] VITALS: BP 142/74; PULSE 107; O2SAT 98; BMI 20.2
--- NOTE | 2025-01-29 10:23 | A.OFFVIS_ITS ---
Vital Signs 01/29/25 10:23 Height 5 ft 2 in Weight 110 lb 10.753 oz BMI 20.2 BP 142/74 H Blood Pressure Location Rt brachial Position Sitting Pulse 107 H Pulse Source Pulse Oximeter Pulse Oximetry (%) 98 Oxygen Delivery Method Room Air Intake Visit Reasons: 8 months follow up Intake Note: Pt presents to the office today for an 8 month follow up. Pt states he is feeling well and states his acid reflux has improved. Accompanied by: Sister Allergies No Known Allergies [No Known Allergies*] Allergy (Verified 01/29/25 10:24) HPI HPI 8 months follow up: Details: Assessment & Plan (1) Irritable bowel syndrome with constipation: Code(s): K58.1 - Irritable bowel syndrome with constipation Category: Medical (2) GERD (gastroesophageal reflux disease): Code(s): K21.9 - Gastro-esophageal reflux disease without esophagitis Category: Medical Qualifiers: Esophagitis presence: without esophagitis Qualified Code(s): K21.9 - Gastro-esophageal reflux disease without esophagitis Plan Nepalese #sister translates per pt request ([place]) He continues to do well! Due for colonoscopy next year (2024). She continues on her dicyclomine and pantoprazole remains satisfied with her GI regimen. ROV 6 mos. Medications: Refilled dicyclomine 20 mg PO QID 360 tabs 6RF K58.1 - Irritable bowel syndrome with constipation, K21.9 - Gastro-esophageal reflux disease without esophagitis pantoprazole 40 mg PO DAILY 90 tabs 2RF K21.9 - Gastro-esophageal reflux disease without esophagitis TODAY'S VISIT Nepalese # translates per pt request. He continues to do well and he is very happy today!! They are agreeable to colonoscopy repeatr/t TA's. There are no prior problems with anesthesia or sedation. They deny any cardiac or respiratory problems. There are no infectious disease problems. Return office visit in 6 months and after the colonoscopy. [facility] Medical History Screening for diabetes mellitus (DM) Colon cancer screening Screening for hypercholesterolemia Screening for hypothyroidism Annual physical exam IBS (irritable bowel syndrome) GERD (gastroesophageal reflux disease) Cerebral palsy Surgical History History of colonoscopy History of surgery on lower extremity History of esophagogastroduodenoscopy (EGD) Family History Father Myocardial infarction Mother Diabetes mellitus HTN (hypertension) Myocardial infarction, Onset Age: 66 Brother Cerebral palsy Maternal Grandfather Skin cancer Maternal Grandmother Myocardial infarction Social History Household Members: Family Housing: House Alcohol intake: never Patient Tobacco Use Status: Never used Tobacco Tobacco use type: Cigarette e-Cigarette/Vaping Use: Never Used Second Hand Smoke Exposure: No service: No Current occupational status: disabled Cognitive needs: Yes Hearing needs: No Vision needs: No Review of Systems Const Denies fatigue, Denies fever(s), Denies night sweats, Denies poor appetite and Denies weight loss Eyes Reports requires corrective lenses ENT Reports Normal hearing present, Denies dental pain, Denies dysphagia, Denies hearing loss, Denies mouth pain, Denies odynophagia, Denies throat swelling, Denies tongue swelling and Reports other (Dentition adequate) GI Details: Denies abdominal pain, Denies melena, Denies bloating, Denies hematochezia, Denies constipation, Denies GI cramping, Denies dysphagia, Denies excessive flatus, Denies early satiety, Denies heartburn, Denies diarrhea, Denies nausea, Denies odynophagia, Denies vomiting and Denies hematemesis Skin/Breast Denies pruritus, Denies lesions, Denies rash and Denies jaundice Neuro Reports Normal hearing present and Denies Abnormal speech present Endo Denies fatigue Aller/Immun Denies throat swelling and Denies tongue swelling Physical Exam Vital Signs: Last Vital Signs Pulse 107 H 01/29/25 10:23 BP 142/74 H 01/29/25 10:23 Pulse Ox 98 01/29/25 10:23 Oxygen Delivery Method Room Air 01/29/25 10:23 BMI result Body Mass Index 20.2 Const General: cooperative, no acute distress, well developed and well groomed Nutritional Appearance: average body habitus and well nourished Orientation/consciousness: oriented to person, oriented to place and oriented to time Limitations: language barrier, ambulation with walker and other limitations (Cognitive an educational) HEENT Head: Yes normocephalic and Yes atraumatic Eyes General: appearance normal, both eyes and all related structures Pupils: Equal, round and reactive pupils present Neck Neck: Yes normal visual inspection and Yes no lymphadenopathy Thyroid: Thyroid normal Resp Effort & Inspection: normal respiratory effort and able to speak in complete sentences Auscultation: clear to auscultation bilaterally Cardio Rate: regular rate Rhythm: regular rhythm Heart sounds: Normal, physiologic split S2 sound present Peripheral pulses: radial pulses present and posterior tibial pulses present GI Inspection: No distended and No Abdominal panniculus present Palpation (GI): Soft to palpation, nontender, no guarding, not rigid and No hepatosplenomegaly present Percussion: Yes normal to percussion Auscultation: normal bowel sounds Rectal Exam - Male: Yes deferred Skin General skin exam: no rashes or lesions noted, turgor normal, skin not dry, no jaundice, No spider nevi and no striae Rashes: no rashes Nails: normal Neuro General: oriented to person, oriented to place and oriented to time Cranial nerves: Yes Equal, round and reactive pupils present and Yes Normal hearing present Speech: No Abnormal speech present Extrem General: Yes normal to inspection, No clubbing, No cyanosis and No edema Psych Appearance: grossly normal and well kempt Mental Status: other Speech and movement: Echolalia present (Psych) Affect: Animated affect present Attitude: cooperative Thought process: not confabulating and Other thought process findings present Thought content: other Insight: Limited insight present (Psych) Judgement: Limited judgement present (Psych) Assessment & Plan Assessment & Plan (1) Tubular adenoma of colon: Comment: 2021 scope repeat in 3 years aeb Code(s): D12.6 - Benign neoplasm of colon, unspecified Category: Medical (2) Irritable bowel syndrome with constipation: Code(s): K58.1 - Irritable bowel syndrome with constipation Category: Medical (3) GERD (gastroesophageal reflux disease): Code(s): K21.9 - Gastro-esophageal reflux disease without esophagitis Category: Medical Qualifiers: Esophagitis presence: without esophagitis Qualified Code(s): K21.9 - Gastro-esophageal reflux disease without esophagitis (4) Pre-op examination: Code(s): Z01.818 - Encounter for other preprocedural examination Category: Medical Plan Nepalese #Sister translates per pt request. He continues to do well and he is very happy today!! They are agreeable to colonoscopy repeatr/t TA's. There are no prior problems with anesthesia or sedation. They deny any cardiac or respiratory problems. There are no infectious disease problems. Return office visit in 6 months and after the colonoscopy Orders: Orders Complete Blood Count Auto Diff Today D12.6 - Benign neoplasm of colon, unspecified, Z01.818 - Encounter for other preprocedural examination Comprehensive Met. Panel Today D12.6 - Benign neoplasm of colon, unspecified, Z01.818 - Encounter for other preprocedural examination Colonoscopy - GI Use Only Today D12.6 - Benign neoplasm of colon, unspecified, Z01.818 - Encounter for other preprocedural examination Medications: New bisacodyl (Dulcolax (bisacodyl)) 10 mg (2 x 5 mg) PO BEDTIME 2 days 4 tabs 0RF peg 3350-electrolytes 236-22.74-6.74 -5.86 gram (Golytely) until fecal effluent is clear; do not exceed a total volume of 2,000 mL 240 mL PO Q10M 1 day 4,000 mL 0RF Z12.11 - Encounter for screening for malignant neoplasm of colon Refilled pantoprazole 40 mg PO DAILY 90 tabs 2RF K21.9 - Gastro-esophageal reflux disease without esophagitis dicyclomine 20 mg PO QID 360 tabs 6RF K21.9 - Gastro-esophageal reflux disease without esophagitis, K58.1 - Irritable bowel syndrome with constipation Coding Level of Care Code Est Pt Level 4 (68785) Diagnoses Tubular adenoma of colon D12.6 Irritable bowel syndrome with constipation K58.1 Gastroesophageal reflux disease without esophagitis K21.9 Esophagitis presence: without esophagitis Pre-op examination Z01.818 Time Spent (min) 33
--- OUTSIDE RECORDS SUMMARY | 2025-01-29 11:43 | XMS_ITS ---
[facility] Address [address] [place] [address] Care Team Providers Care Enrollment Nurse Name Role Phone Cathy LEWIS, Nano Primary Care Provider Unavail able Black, Kylie Unavailable [phone] Allergies No Known Allergies REASON FOR VISIT Painful nail(s) aggrevated by shoes causing difficulty standing/walking, Painful Toe(s), Ingrown Nail, Open sore - Toe Medications Medication SIG (Take, Route, Frequency, Duration) Notes Start Date End Date Status Naproxen 250 MG 1 tablet with food o r milk Orally Twice a day PRN Active Vitamin D3 Active Dicyclomine HCl 20 MG 1 tablet Orally Th ree times a day Active Pantoprazole Sodium 40 MG 1 tablet Orally Once a day Active Social History Tobacco Use: Social History Observation Description Date Details (start date - stop date) Never Smoker NA - NA Tobacco Use/Smoking Question Answer Notes Are you a: nonsmoker Additional Findings: Tobacco Non-User Current no n-smoker Alcohol Screen Question Answer Notes Did you have a drink containing alcohol in the p ast year? No Points 0 Interpretation Negative Tobacco use other than smoking: Question Answer Notes Are you an other tobacco user? No Problems Problem Type SNOMED Code ICD Code Onset Dates Problem Status W/U Status Risk Notes Problem Acquired hammer toe of right foot (9697657950749681) Other hammer toe(s) (acquired), right foot (M20.41) Active confirmed Problem Localized, primary osteoarthritis of the ankle and/or foot (120115260) Arthritis of joint of lesser toe, right (M19.071) Active confirmed Problem Ulcer of toe of left foot (disorder) (09271553278523980 ) Skin ulcer of toe of left foot, limited to breakdown of skin (L97.521) Active confirmed Problem Ulcer of toe of right foot (disorder) (30964883808413192 ) Skin ulcer of toe of right foot, limited to breakdown of skin (L97.511) Active confirmed Vital Signs Height 5 ft 2 in in 02/29/2024 Weight 135 lbs 02/29/2024 BMI 24.69 kg/m2 02/29/2024 Blood pressure systolic 128 mm Hg 02/29/20 24 Blood pressure diastolic 70 mm Hg 024 Procedures Procedure Date Ordered Date Performed Result Body Sit e 57999-TALBTWP NAIL, 6 OR MORE 02/29/2024 N/A 38030-Vjlssqbx Plate 02/29/2024 N/A 06928- Debride <25 sq cm 02/29/2024 N/A Encounters Encounter Location Date Provider Diagnosis [facility] [address] [place] [address] 02/29/2024 Kylie Black Tinea unguium B35.1 ; Pain in right toe(s) M79.674 ; Pain in left toe(s) M79.675 ; Other hammer toe(s) (acquired), right foot M20.41 ; Arthritis of joint of lesser toe, right M19.071 ; Subluxation of metatarsophalangeal joint of toe, initial encounter S93.149A ; Ingrown nail L60.0 and Skin ulcer of toe of right foot, limited to breakdown of skin L97.511 Assessments Encounter Date Diagnosis (ICD Code) Assessment Notes Treatment Notes Treatment Clinical Notes Section Notes 02/29/2024 Tinea unguium (ICD-1 0 - B35.1) 02/29/2024 Pain in right toe(s) (ICD-10 - M79.674) 02/29/2024 Pain in left toe(s) (ICD-10 - M79.675) 02/29/2024 Other hammer toe(s) (acquired), right foot (ICD-10 - M20.41) 02/29/2024 Arthritis of joint o f lesser toe, right (ICD-10 - M19.071) 02/29/2024 Subluxation of metatarsophalangeal joint of toe, initial encounter (ICD-10 - S93.149A) 02/29/2024 Ingrown nail (ICD-10 - L60.0) 02/29/2024 Skin ulcer of toe of right foot, limited to breakdown of skin (ICD-10 - L97.511) Nonapplicable Patient Educated with: WOUND CARE INSTRUCTIONS .pdf (WOUND CARE INSTRUCTIONS .pdf) 02/29/2024 Other Plan Of Treatment Treatment Notes Assessment Notes Skin ulcer of toe of right f oot, limited to breakdown of skin Patient Educated with: WOUND CARE INSTRUCTIONS.pdf (WOUND CARE INSTRUCTIONS.pdf) Pending Test Test Name Order Date 19557-QTIALMI NAIL, 6 OR MORE 02/29/2024 83917-Viunfyzo Plate 02/29/2024 43114- Debride <25 sq cm 02/29/2024 Next Appt Details Follow Up: prn, Reason: Procedure Notes * Category Sub-Category Detail Notes Nail Avulsion Procedure A fine sterile e levator was placed between the eponychium, nail fold, and nail plate to separate the structures. A sterile nail splitter, and/or sterile 316 blade, was then used to longitudinally section the nail along its entire length through the eponychium to the area under the nail fold. The offending portion of nail was from the nail bed with a rolling action and then removed with a hemostat. No underlying bone was identified. There was minimal bleeding as hemostasis was achieved through the temporary use of either a digital tourniquet or the aforementioned local with epinephrine. A bacitracin sterile dressing was applied. Local wound aftercare instructions were discussed and dispensed. The patient was informed of both conservative and future surgical procedures to prevent recurrence. Tylenol or Motrin was recommended for pain or discomfort (29160) Anesthesia was accomplished TOP ICALLY with Lidocaine Hydrochloride Jelly 2 percent Location Lateral nail border , T5 Debride Nail 6-10 Nail debridement Nail debridem ent performed extensively to reduce/remove overall nail length, girth, thickness, subungual debris, and necrotic tissue, by manual and electrical means through the use of a nail nipper and/or dremel, to more viable healthy nail plate or bed tissue 1-5. Silver nitrate used for any petechial bleeding as necessary. Patient chooses, no pharmaceutical tx (94092) Debride skin< 25 sq cm Open wound Physician of record performed open wound selective debridement of first 25 sq cm or less, of devitilized necrotic/nonviable soft tissue, fibrin, and exudate extending from the epidermis through the dermis, utilizing sharp dissection with sterile 15 blade, and/or tissue nippers. Sterile antibiotic dressing applied, ANESTHESIA- was accomplished TOPICALLY with Lidocaine Hydrochloride Jelly 2 percent. Hemostasis was achieved through direct pressure. Post debridement measurements: 6 mm _x6 mm x 2 mm. Character of the wound post debridement is stable (69320) Progress Notes * DASH Ollie ADOB:1975 (49 yo M)Acc No.[id number]:02/29/2024 Progress Notes Patient:?Ollie De Los Santos A Provider:?Kylie Villeda DPM :1975???Age:49 Y???Sex:Male Mukund e:02/29/2024 Address:[address] [place] [address] Pcp:Nano Morgan MD Subjective: * Chief Complaints: * ???Painful nail(s) aggrevate d by shoes causing difficulty standing/walkingPainful Toe(s)Ingrown NailOpen sore - Toe * HPI: ???Painful Nails:?Pt States Last PCP Visit:?Date:?01/18/2024 ???Toe pain:?Nature:?tenderness , discoloration.?Location:?Right foot.?Duration:?several weeks.?Course:?worse.?Aggrevated by:?any pressure, shoes.?Treatments:?medication ( naproxen ), Rest/alter normal daily activity, change in shoes- x-rays arthritis and hammertoes.?Skin problems:?Treatments:?none.? * ROS:?General/Constitutional:?Nausea?denies.?Vomiting?denies.?Hunger Thirst?denies.?Loss appetite?denies.?Chills?denies.?Fatigue?denies.?Fever?denies.?Night Sweats?denies.?Unexplained weight loss?denies.?Unexplained weight gain?denies.?HEENTM:?Dentures?denies.?Dizziness?denies.?Glasses/contacts?denies.?Retinopathy?de nies.?Blurred/double vision?denies.?TMJ?denies.?Discharge/drainage?denies.?Implants?denies.?Sore throat?denies.?Dental implants?denies.?Hard of hearing ?denies.?Difficulty chewing/swallowing/speaking?denies.?Nose bleeds?denies.?Sore mouth?denies.?Respiratory:?On Oxygen?denies.?Pneumonia/pleurisy?denies.?Bronchitis?denies.?Emphysema?denies.?C oughing?denies.?Cough blood?denies.?Shortness of breath?denies.?Wheezing?denies.?Cardiovascular:?Pacemaker?denies.?MVP?denies.?WPW?denies.?CHF?denies.?Heart attack?denies.?Septal defect?denies.?Rapid beat?denies.?Chest pain ?denies.?Atrial Fib.?denies.?Murmur/Palpitations?denies.?Gastrointestinal:?Hemorrhoids?denies.?Stomach/Abdominal pain?admits.?Dark blood stool?denies.?Irritable bowel ?denies.?Constipation?denies.?Diarrhea?denies.?Hematology:?Swelling?admits.?Clots?denies.?Varicose Veins?denies.?Bruising?denies.?Bleeding problem?denies.?Genitourinary:?Blood urine?denies.?Frequent/Painfu/urination/bladder control?denies.?Kidney stones?denies.?Infection (UTI)?denies.?Nephropathy?denies.?sex trans dis (STD)?denies.?Prostate?denies.?Musculoskeletal:?Hammertoes?denies.?Bunions?denies.?Back Pain?denies.?Muscle Cramps/ Resting?denies.?Muscle cramps / walking?denies.?Generalized aches and pains?admits.?Weakness?denies.?Integ.:?Hilario?denies.?Scars?denies.?Corns/calluses?denies.?Ingrown nails?denies.?Painful nails?denies.?Open Sores?denies.?Rashes?denies.?Neurologic:?Difficulty sleeping?denies.?Brain disorder?denies.?Numbness?denies.?Balance trouble?denies.?Confusion?denies.?Fainting/blackouts?denies.?Tingling?denies.?Tr emors?denies.? * Medical History:? * Surgical History:?knee surge ry / legs * Hospitalization/Major Diagno stic Procedure:?Denies Past Hospitalization * Family History:?Mother: alina cristina, diagnosed with Family history of arthritis, Diabetic - NIDDM, Unspecified heart disease, Unspecified cerebral artery occlusion with cerebral infarction.?Father: , diagnosed with Diabetic - NIDDM, Unspecified essential hypertension, Unspecified heart disease, Unspecified cerebral artery occlusion with cerebral infarction.?Paternal Grand Mother: diagnosed with Other malignant neoplasm of unspecified site.?Paternal Grand Father: diagnosed with Other malignant neoplasm of unspecified site.?Maternal Grand Mother: diagnosed with Other malignant neoplasm of unspecified site.?Maternal Grand Father: diagnosed with Other malignant neoplasm of unspecified site.?Paternal aunt: diagnosed with Diabetic - NIDDM, Unspecified essential hypertension, Unspecified heart disease, Unspecified cerebral artery occlusion with cerebral infarction.?Paternal uncle: diagnosed with Unspecified heart disease, Unspecified cerebral artery occlusion with cerebral infarction.?Maternal aunt: diagnosed with Diabetic - NIDDM, Unspecified essential hypertension, Unspecified heart disease, Unspecified cerebral artery occlusion with cerebral infarction. Maternal uncle: diagnosed with Unspecified heart disease, Unspecified cerebral artery occlusion with cerebral infarction.? Kidney / Liver Disease : Father Defects: Sister, Brother, Cousins Poor Circulation: Dad. * Social History:?Tobacco Use:?Tobacco Use/Smoking?Are you a:?nonsmoker ?Additional Findings: Tobacco Non-User?Current non-smoker ?Tobacco use other than smoking?Are you an other tobacco user??No ???Drugs/Alcohol:?Drugs?Have you used drugs other than those for medical reasons in the past 12 months??No ?Alcohol Screen?Did you have a drink containing alcohol in the past year??No ?Points?0 ?Interpretation?Negative ???Miscellaneous:?Caffeine: yes, Soda, 1-2 cups per day. ?no Children. ?no Exercise. ?Marital status: single. ?Occupation: not working. * Medications:?TakingPantopraz ole Sodium 40 MG Tablet Delayed Release 1 tablet Orally Once a dayDicyclomine HCl 20 MG Tablet 1 tablet Orally Three times a dayVitamin D3 Naproxen 250 MG Tablet 1 tablet with food or milk Orally Twice a day, Notes: PRNMedication List reviewed and reconciled with the patientTaking Pantoprazole Sodium 40 MG Tablet Delayed Release 1 tablet Orally Once a dayTaking Dicyclomine HCl 20 MG Tablet 1 tablet Orally Three times a dayTaking Vitamin D3 Taking Naproxen 250 MG Tablet 1 tablet with food or milk Orally Twice a day, Notes: PRNMedication List reviewed and reconciled with the patient * Allergies:?N.K.D.A.yes[Aller gies Verified] Objective: * Vitals:?Ht: 5 ft 2 in, Wt:13 5, BMI:24.69, Shoe size: 8, BP:128/70 mm Hg, Ht-cm: 157.48 cm, Wt-k.23 kg. * Examination: ???General Examination: ?GENERAL APPEARANCE:?Reveals a pleasant, alert, well nourished, well- developed, well hydrated individual, who demonstrates proper attention to hygiene/body habitus, and is in no acute distress, , Pt accompanied by , Female , who serves as , Vp [employer] And Skin/Collar Fuser , and/who is physically present in exam room at time of visit.?ORIENTED:?person, place, and time.?Nails: ?NAILS are:?Elongated, overgrown, dystrophic, lytic, greater than 3mm thick, discolored and friable with crumbly malodorous subungual debris, with pain on palpation , 2?,3,5 Right foot , T3 , T2 , T4.?Orthopedic: ?MUSCLE STRENGTH:?Generalized decrease in strength , B/L.?GAIT ABNORMALITY:?antalgic , walker-assisted , B/L.?BUNION:?Medially prominent 1st MPJ , B/L , ROM 1st MPJ full,and without pain, or crepitus.?DIGITAL DEFORMITIES:?Digital contracture, PIPJ, 2-5 B/L, non-reducible with WB or to push-up test, no over, nor underlapping , Reveals pain/swelling/redness/enlargement of DIPJ T8.?MPJ PATHOLOGY:?Plantarflexed MT/MPJ , 5th , LEFT , No MPJ pain with ROM.?FOOTWEAR:? shoe gear properties exacerbate patients foot/toe deformity.?Ingrown Nail: ?INSPECTION:?Reveals nail incurvation, pain on palpation, groove hypertrophy , groove ischemia , Lateral nail border , T5.?Dermatologic: ?SKIN FINDINGS:?Skin exam reveals normal color, texture, elasticity, and turgor. There are no masses, nor excrescences. The interspaces are clear, B/L , Skin exam reveals Keratotic lesion(s) located at , SUB MTH (s) , 5 , Left.?ULCER:? LOCATIONT8, , SIZE, 5mm X 5mm X 2mm, BASE, granular, RIM, hyperkeratotic, UNDERMINING, absent, TRACKING, Full thickness breakdown of skin, DRAINAGE, serosanguineous, mild, NECROTIC TISSUE, loosely-adherent, yellow slough, MALODOR, absent, CALOR, absent, ERYTHEMA, absent, PAIN ON PALPATION, present.?Neurological: ?SENSORY:?Neurological exam reveals intact sensorium, pain sensation normal, vibration sensation intact, pinprick sensation is normal in the lower extremities, Pt denies, anesthesia, burning, paresthesia, tingling, B/L.?DEEP TENDON REFLEXES:?/, B/L ,?.?X-Rays - IMAGING REPORT: ?Views:?report is reviewed.?Findings:?mild generalized decrease in bone density.?Foot structure:?reveals excess pronation with , anterior break in cyme line.?Digits:?show enlarged/hypertrophied phalangeal head(s) consistent for clinical finding of hammertoe deformity.?HAV:?increased First Intermetatarsal angle and Hallux Abductus angle consistent with Bunion deformity noted.?Fracture:?Negative fractures identified.? Assessment: * Assessment: 1.?Pain in right toe(s) - M7 9.674?2.?Tinea unguium - B35.1?3.?Pain in left toe(s) - M79.675?4.?Other hammer toe(s) (acquired), right foot - M20.41?5.?Arthritis of joint of lesser toe, right - M19.071?6.?Subluxation of metatarsophalangeal joint of toe, initial encounter - S93.149A?7.?Ingrown nail - L60.0?8.?Skin ulcer of toe of right foot, limited to breakdown of skin - L97.511, Response to treatment, Nonapplicable? Plan: * Treatment: 2.?Ingrown nail?Procedure: 85714-Rbvxtbfm Plate 3.?Skin ulcer of toe of righ t foot, limited to breakdown of skin?Procedure: 02779- Debride <25 sq cm Notes: Patient Educated with: WOUND CARE INSTRUCTIONS.pdf (WOUND CARE INSTRUCTIONS.pdf)?? * Procedures:?Debride Nail 6-10:?Nail debridement?Nail debridement performed extensively to reduce/remove overall nail length, girth, thickness, subungual debris, and necrotic tissue, by manual and electrical means through the use of a nail nipper and/or dremel, to more viable healthy nail plate or bed tissue 1-5. Silver nitrate used for any petechial bleeding as necessary. Patient chooses, no pharmaceutical tx (02443).?Debride skin< 25 sq cm:?Open wound?Physician of record performed open wound selective debridement of first 25 sq cm or less, of devitilized necrotic/nonviable soft tissue, fibrin, and exudate extending from the epidermis through the dermis, utilizing sharp dissection with sterile 15 blade, and/or tissue nippers. Sterile antibiotic dressing applied, ANESTHESIA- was accomplished TOPICALLY with Lidocaine Hydrochloride Jelly 2 percent. Hemostasis was achieved through direct pressure. Post debridement measurements: 6 mm _x6 mm x 2 mm. Character of the wound post debridement is stable (96172).?Nail Avulsion:?Location?Lateral nail border , T5.?Anesthesia?was accomplished TOPICALLY with Lidocaine Hydrochloride Jelly 2 percent.?Procedure?A fine sterile elevator was placed between the eponychium, nail fold, and nail plate to separate the structures. A sterile nail splitter, and/or sterile 316 blade, was then used to longitudinally section the nail along its entire length through the eponychium to the area under the nail fold. The offending portion of nail was from the nail bed with a rolling action and then removed with a hemostat. No underlying bone was identified. There was minimal bleeding as hemostasis was achieved through the temporary use of either a digital tourniquet or the aforementioned local with epinephrine. A bacitracin sterile dressing was applied. Local wound aftercare instructions were discussed and dispensed. The patient was informed of both conservative and future surgical procedures to prevent recurrence. Tylenol or Motrin was recommended for pain or discomfort (40508).? * Procedure Codes:?10887 DEBRI DE NAIL, 6 OR MORE, Modifiers: XS 11549 Avulsion Plate, Modifiers: T5 63112 ACTIVE WOUND CARE/20 CM OR <, Modifiers: T8 * Preventive Medicine:? ??Counseling:?Discussion:?-04: Office or other outpatient visit for the evaluation and management of a new patient, which required a medically appropriate history and/or examination and MODERATE level of DECISION MAKING for: 1 OR MORE CHRONIC PROBLEM(S) THATS WORSENING, 2 STABLE CHRONIC PROBLEMS, A NEWLY DIAGNOSED PROBLEM WITH UNCERTAIN PROGNOSIS, AN ACUTE COMPLICATED INJURY WITH MULTIPLE TREATMENT OPTIONS, OR AN ACUTE PROBLEM WITH ACCOMPANYING SYSTEMIC SYMPTOMS, THAT POSE(S) A MODERATE RISK OF MORBIDITY. THIS CONDITION MAY ALSO INCLUDE RX DRUG MANAGEMENT, OR A DECISON FOR MINOR SURGERY. The visit on the day of the encounter encompassed interpreting the data and educating the patient as to the nature of their condition, treatment options available according to their individual PMH, meds, allergies, and overall health/living conditions, as well as any potential risks or complications that may occur from a failure to adhere to, and participate in, the recommended course of therapy. The discussion included a complete verbal, and/or written explanation of the examination results, any x-rays taken, the proposed diagnosis, and outline of the treatment plan. A schedule for future care needs was also explained. The patient verbalized an understanding of the instructions at this time and agreed to be an active participant in their treatment. If the patient should think of any questions or concerns after the visit, I have encouraged the patient to call the office.?Bio[employer]ech.:?Discussed and reviewed the X-rays with the patient. We discussed how the findings relate to the patients symptoms/complaints. Answered any and all questions., I discussed the Pts foot biomechanics with them and how it relates to their problem.?Digital Treatment:?HT- I explained to the patient the possible etiologies of Hammertoes, including genetics/foot type/shoegear/activity level/exercise routine and the risks/benefits of all the different treatment options for their pain including: No treatment at all, Rest, Ice, New/supportive/wider/deeper Shoegear, Digital Padding/Strapping/Taping/Bracing/Gel protective sleeves, Foot/Ankle AFO Bracing, Stretching exercises, Deep Tissue Massage, Arch support/shoe inserts with splay metatarsal padding, and Custom orthoses. I insisted that any digital devices be removed daily and not worn overnight for safety. The patient is to carefully examine the toes daily for any skin irritation while using any splinting or padding device. The advantages and disadvantages of each option were discussed and the patients questions re: shoegear, padding, custom vs prefabricated inserts, activity level, and consistency in home treatment regimens for optimal success were answered to their verbally confirmed satisfaction.?Shoe Gear Counseling:?The patient and I reviewed the types of shoes they should be wearing. My recommendation included obtaining a well-fitted shoe with a good supportive, non-foldable nor twistable sole, plenty of toe/room for the forefoot, and proper arch support. Based on todays examination, I recommended the patient look for new shoes, by having their feet professionally measured. We discussed that generally the best time of the day for a shoe fitting is the afternoon. Different shoes types and brands to best match the patients occupation and vocation were discussed. Specific brand selection will be up to the patient, their individual foot condition/deformities, and fit. The patient and I reviewed the standard new shoe break in period by wearing them for a few hours a day while checking for redness or sores as wear time is increased. The patient verbally confirmed to understanding the information discussed.? * Follow Up:?prn * Images: * Sign off status: Completed true * Provider:?Kylie Villeda DPM Date:?2023 Generated for Gita miranda/Sofie/Elisabeth on:?01/29/2025 11:43 AM EDT History and Physical Notes * HPI (History of Present Illness) Category Sub-Category Detail Notes Category Not es Toe pain Nature: tenderness , discoloration Location: Right foot Duration: several weeks Course: worse Aggravated by: any pressure, shoes Treatments: medication ( naproxe n ), Rest/alter normal daily activity, change in shoes- x-rays arthritis and hammertoes Painful Nails Pt States Last PCP Visit: Date:: 01/18/2024 Skin problems Treatments: none Examination Category Sub-Category Detail Notes Category Not es Ingrown Nail INSPECTION: Reveals nail inc urvation, pain on palpation, groove hypertrophy , groove ischemia , Lateral nail border , T5 Neurological SENSORY: Neurological exa m reveals intact sensorium, pain sensation normal, vibration sensation intact, pinprick sensation is normal in the lower extremities, Pt denies, anesthesia, burning, paresthesia, tingling, B/L DEEP TENDON REFLEXES: 1/4, B/L , Dermatologic SKIN FINDINGS: Skin exam reveal s normal color, texture, elasticity, and turgor. There are no masses, nor excrescences. The interspaces are clear, B/L , Skin exam reveals Keratotic lesion(s) located at , SUB MTH (s) , 5 , Left ULCER: LOCATIONT8, , SIZE, 5mm X 5mm X 2mm, BASE, granular, RIM, hyperkeratotic, UNDERMINING, absent, TRACKING, Full thickness breakdown of skin, DRAINAGE, serosanguineous, mild, NECROTIC TISSUE, loosely-adherent, yellow slough, MALODOR, absent, CALOR, absent, ERYTHEMA, absent, PAIN ON PALPATION, present Orthopedic GAIT ABNORMALITY: antalgic , walker-jacy hang , B/L BUNION: Medially prominent 1 st MPJ , B/L , ROM 1st MPJ full,and without pain, or crepitus FOOTWEAR EVALUATION: shoe gear propertie s exacerbate patients foot/toe deformity DIGITAL DEFORMITIES: Digital contracture , PIPJ, 2-5 B/L, non-reducible with WB or to push-up test, no over, nor underlapping , Reveals pain/swelling/redness/enlargement of DIPJ T8 MPJ PATHOLOGY: Plantarflexed MT/MPJ , 5th , LEFT , No MPJ pain with ROM MUSCLE STRENGTH: Generalized decrease in strength , B/L General Examination GENERAL APPEARANCE: Reveals a pleasant, alert, well nourished, well-developed, well hydrated individual, who demonstrates proper attention to hygiene/body habitus, and is in no acute distress, , Pt accompanied by , Female , who serves as , Vp [employer] And Skin/Collar Fuser , and/who is physically present in exam room at time of visit ORIENTED: person, place, and t sylwia Nails NAILS are: Elongated, overg rown, dystrophic, lytic, greater than 3mm thick, discolored and friable with crumbly malodorous subungual debris, with pain on palpation , 2 ,3,5 Right foot , T3 , T2 , T4 X-Rays - IMAGING REPORT Findings: mild generalized decrease in bone density Fracture: Negative fractures i dentified Digits: show enlarged/hypert rophied phalangeal head(s) consistent for clinical finding of hammertoe deformity Foot structure: reveals excess prona tion with , anterior break in cyme line HAV: increased First Inte rmetatarsal angle and Hallux Abductus angle consistent with Bunion deformity noted Views: report is reviewed
--- OUTSIDE RECORDS SUMMARY | 2025-01-29 11:43 | XMS_ITS ---
Author Organization [facility] Address [address] [place] [address] Care Team Providers Care Heavy Mobile Equipment Operator Name Role Phone Cathy LEWIS, Nano Primary Care Provider Unavail able Black, Kylie Unavailable [phone] REASON FOR VISIT X-ray Report Request Encounters Encounter Location Date Provider Diagnosis [address] [address] 02/29/2024 Kylie Black Plan Of Treatment No Information Progress Notes * Ollie BOWLING ADOB:1975 (49 yo M)Acc No.[id number]:02/29/2024 Patient:?Ollie Bowling :1975???Age:49 Y???Sex:Male Address:[address] [place] [address] * true * Date:? Generated for Polai ruth/Sofie/eTransmitting on:?01/29/2025 11:43 AM EDT
--- OUTSIDE RECORDS SUMMARY | 2025-01-29 11:43 | XMS_ITS | Patient Health Record ---
Author Organization [facility] Address [address] [place] [address] Care Team Providers Care Specialty Foods Cook Name Role Phone Nano Morgan MD Primary Care Provider Unavail able Black, Kylie Unavailable [phone] Allergies No Known Allergies Reason For Referral No Information Medications Medication SIG (Take, Route, Frequency, Duration) [...] Problem Acquired hammer toe of right foot (7450872783623328) Other hammer toe(s) (acquired), right foot (M20.41) Active confirmed Problem Ulcer of toe of right foot (disorder) (59982940498514734 ) Skin ulcer of toe of right foot, limited to breakdown of skin (L97.511) Active confirmed Problem Localized, primary osteoarthritis of the ankle and/or foot (867943785) Arthritis of joint of lesser toe, right (M19.071) Active confirmed Problem Ulcer of toe of left foot (disorder) (06849829391326477 ) Skin ulcer of toe of left foot, limited to breakdown of skin (L97.521) Active confirmed Vital Signs Blood pressure diastolic 70 mm Hg 02/29/2024 Height 5 ft 2 in in 02/29/2024 Blood pressure systolic 128 mm Hg 02/29/2024 Weight 135 lbs 02/29/2024 BMI 24.69 kg/m2 02/29/2024 Procedures Procedure Date Ordered Date Performed Result Body Sit e 95956-OHGYFLG NAIL, 6 OR MORE 02/29/2024 N/A 70956-Zaenbans Plate 02/29/2024 N/A 50019- Debride <25 sq cm 02/29/2024 N/A Encounters Encounter Location Date Provider Diagnosis [facility] [address] [address] 02/29/2024 Kylie Ronal Tinea unguium B35.1 ; Pain in right toe(s) M79.674 ; Pain in left toe(s) M79.675 ; Other hammer toe(s) (acquired), right foot M20.41 ; Arthritis of joint of lesser toe, right M19.071 ; Subluxation of metatarsophalangeal joint of toe, initial encounter S93.149A ; Ingrown nail L60.0 and Skin ulcer of toe of right foot, limited to breakdown of skin L97.511 [facility] [address] 02/29/2024 Kylie Ronal Assessments Encounter Date Diagnosis (ICD Code) Assessment Notes Treatment Notes Treatment Clinical Notes Section Notes 02/29/2024 Pain in right toe(s) (ICD-10 - M79.674) 02/29/2024 Tinea unguium (ICD-1 0 - B35.1) 02/29/2024 Pain in left toe(s) (ICD-10 - [...] INSTRUCTIONS .pdf) 02/29/2024 Other Plan Of Treatment Pending Test Test Name Order Date 58308-ISNUHUR NAIL, 6 OR MORE 02/29/2024 33641-Zhdmgqbx Plate 02/29/2024 99741- Debride <25 sq cm 02/29/2024 Insurance Providers Payer Name Payer Address Payer Phone Subscriber Number Group Number Insured Name Patient Relationship to Insured Coverage Start Date Coverage End Date [facility] CCA SCO Claims [address] [place] [id number] [phone] [id number] Ollie De Los Santos Self - patient is the insured Medical (General) History Medical History History ICD Code Cerebral palsy Surgical History Surgery Date(Month/Year) knee surgery / legs
== END 2025-01-29 11:12 | disposition home or self-care (01) ==
LOC: HO.HGI 10:23
PROVIDERS: PCP Physician Assistant; Visit Provider Nurse Practitioner
DX: K21.9 Gastro-esophageal reflux disease without esophagitis (principal); K58.1 Irritable bowel syndrome with constipation; Z12.11 Encounter for screening for malignant neoplasm of colon; Z86.0101 Personal history of adenomatous and serrated colon polyps
CPT/HCPCS: 99214

== ENCOUNTER → 2025-01-29 10:22 | Outpatient (BNVA) | payer OTHER, SELFPAY | PROVIDERS: PCP Physician Assistant; Visit Provider Nurse Practitioner | DX: Z01.818 Encounter for other preprocedural examination (principal); K21.9 Gastro-esophageal reflux disease without esophagitis; K58.1 Irritable bowel syndrome with constipation; D12.6 Benign neoplasm of colon, unspecified | CPT/HCPCS: 99212 ==

== ENCOUNTER 2025-02-05 08:15 | Outpatient (AMB) | payer OTHER, SELFPAY ==
[2025-02-05 08:21] VITALS: BP 124/74; PULSE 97; TEMP 36.2; O2SAT 96; BMI 21.5
--- NOTE | 2025-02-05 08:21 | A.OFFPC_ITS ---
Vital Signs 02/05/25 08:21 Height 5 ft 2 in Weight 117 lb 11.629 oz BMI 21.5 BP 124/74 Blood Pressure Location Lt brachial Position Sitting Pulse 97 Pulse Source Pulse Oximeter Temp 97.1 F Temp Source Temporal Artery Scan Pulse Oximetry (%) 96 Oxygen Delivery Method Room Air Intake Visit Reasons: annual exam Loss Claim Clerk Required: No Accompanied by: Sister Allergies No Known Allergies [No Known Allergies*] Allergy (Verified 02/05/25 08:39) Medication List - Last Reconciled 02/05/25 by Tyrone Chang PA-C bisacodyl (Dulcolax (bisacodyl)) 10 mg (2 x 5 mg) PO BEDTIME 2 days cholecalciferol (vitamin D3) 25 mcg PO DAILY 90 days dicyclomine 20 mg PO QID naproxen 250 mg PO BID PRN 90 days pantoprazole 40 mg PO DAILY peg 3350-electrolytes 236-22.74-6.74 -5.86 gram (Golytely) 240 mL PO Q10M 1 day Shower Chair As directed [wheel chair NEED FOR Catalyst 5VX] Tobacco use date assessed: 02/05/25 Dental Screening Dental Screen Date: 02/05/25 Did you have a dental visit in the last 12 months?: Yes Did you have a dental problem in the last 6 months where you did not have access to dental care?: No Was dental information given to patient?: Patient has dentist HPI annual exam HPI Details Patient is a 50 year-old male here today for an annual physical He presents today with his mother whom gives most of history. Patient has a past medical history significant cerebral palsy, GERD and irritable bowel syndrome. .. Cerebral palsy: Has good support with family. Continues to use a walker for ambulation assistance Needs a particular type of wheelchair. .. He otherwise reports his GI symptoms from his IBS and GERD have been well controlled with current medication he is taking. Vaccines: Up-to-date with COVID vaccine, up-to-date with tetanus vaccine, . Colonoscopy: Colonoscopy done in 2021, polyp found to be that adenoma repeat 3 years [facility] Medical History Annual physical exam Screening for diabetes mellitus (DM) Colon cancer screening Screening for hypercholesterolemia Screening for hypothyroidism IBS (irritable bowel syndrome) GERD (gastroesophageal reflux disease) Cerebral palsy Surgical History History of colonoscopy History of surgery on lower extremity History of esophagogastroduodenoscopy (EGD) Family History Father Myocardial infarction Mother Diabetes mellitus HTN (hypertension) Myocardial infarction, Onset Age: 66 Brother Cerebral palsy Maternal Grandfather Skin cancer Maternal Grandmother Myocardial infarction Social History Household Members: Family Housing: House Alcohol intake: never Patient Tobacco Use Status: Never used Tobacco Tobacco use type: Cigarette e-Cigarette/Vaping Use: Never Used Second Hand Smoke Exposure: No service: No Current occupational status: disabled Cognitive needs: Yes (Walker) Hearing needs: No Vision needs: No Questionnaire PHQ-9 Over the last 2 weeks, how often have you been bothered by any of the following problems? 1. Little interest or pleasure in doing things: not at all 2. Feeling down, depressed, or hopeless: not at all 3. Trouble falling or staying asleep, or sleeping too much: not at all 4. Feeling tired or having little energy: not at all 5. Poor appetite or overeating: not at all 6. Feeling bad about yourself - or that you are a failure or have let yourself or your family down: not at all 7. Trouble concentrating on things, such as reading the newspaper or watching television: not at all 8. Moving or speaking so slowly that other people could have noticed. Or the opposite - being so fidgety or restless that you have been moving around a lot more than usual: not at all 9. Thoughts that you would be better off or of hurting yourself in some way: not at all Total score: 0 Depression Screening Interpretation: Negative Depression Screening Done: Yes 70175 - PHQ-9 Billing: Yes Source: Developed by Drs. Tevin Mg, Claudia Douglas, Jet Urbano and colleagues, with an educational desiree from [employer]. Thrive Questionnaire Date Thrive assessed: 02/05/25 I am a: Patient What is your living situation today?: I have a steady place to live Within the past 12 months, did the food you bought not last and you didn't have the money to get more?: I choose not to answer this question Within the past 12 months, did you worry whether your food would run out before you got money to buy more?: I choose not to answer this question Do you have trouble paying for medicines?: I choose not to answer this question Do you have trouble getting transportation to medical appointments?: No Do you have trouble paying your heating and electricity bill?: I choose not to answer this question Do you have trouble taking care of your child, family member or friend?: I choose not to answer this question Do you have trouble with day-to-day activities such as bathing, preparing meals, shopping, managing finances, etc.?: No Are you currently unemployed and looking for a job?: I choose not to answer this question Are you interested in more education?: I choose not to answer this question Please select the resources that you would like help with: None Currently or been in a relationship where the following occur: I choose not to answer THRIVE Score: 0 AUDIT C Alcohol Use Questionnaire (AUDIT-C) 1. How often do you have a drink containing alcohol?: Never 3. How often do you have six or more drinks on one occasion?: Never Total Score: 0 Score Reviewed/Action Taken: No ALANNA-7 AMB Questionnaire ALANNA-7 Date ALANNA - 7 assessed: 02/05/25 Feeling nervous, anxious, or on edge: 0 = Not at all Not being able to stop or control worryin = Not at all Worrying too much about different things: 0 = Not at all Trouble relaxin = Not at all Being so restless that it is hard to sit still: 0 = Not at all Becoming easily annoyed or irritable: 0 = Not at all Feeling afraid as if something awful might happen: 0 = Not at all Total ALANNA-7 score (0-4 normal; 5-9 mild; 10-14 moderate; 15-21 severe): 0 Source: Developed by Drs. Tevin Mg, Claudia Douglas, Jet Urbano and colleagues, with an educational desiree from [employer]. ALANNA-7 Assessment Billing ALANNA-7 Assessment Tool: ALANNA-7 Assessment 65662 Review of Systems Const Denies body aches, Denies chills, Denies excessive sweating, Denies fatigue, Denies fever(s) and Denies headache(s) Eyes Denies blurry vision ENT Denies dysphagia, Denies vertigo, Denies dizziness, Denies headache(s), Denies hearing loss and Denies tinnitus Card Denies chest pain, Denies chest pain with activity, Denies syncope, Denies ir regular heart rhythm and Denies dyspnea Resp Denies chest congestion, Denies cough, Denies hemoptysis, Denies dyspnea and Denies wheezing GI Denies abdominal pain, Denies melena, Denies hematochezia, Denies coffee ground emesis, Denies dysphagia, Denies diarrhea, Denies nausea and Denies vomiting Denies difficulty urinating, Denies dysuria, Denies urinary frequency, Denies urinary hesitancy and Denies urinary urgency Musc Denies arthralgias, Denies limited range of motion, Denies muscle cramps and Denies muscle weakness Skin/Breast Denies rash and Denies skin ulcer Neuro Denies Abnormal speech present, Denies confusion, Denies vertigo, Denies dizziness, Denies syncope, Denies headache(s), Denies memory loss and Denies seizure-like activity Psych Denies anxiety, Denies confusion, Denies depression, Denies memory loss, Denies panic attacks and Denies paranoia Endo Denies excessive sweating, Denies fatigue, Denies flushing, Denies polydipsia and Denies polyuria Aller/Immun Denies wheezing Physical exam (Primary Care) Vital Signs: Last Vital Signs Temp 97.1 F 02/05/25 08:21 Pulse 97 02/05/25 08:21 BP 124/74 02/05/25 08:21 Pulse Ox 96 02/05/25 08:21 Oxygen Delivery Method Room Air 02/05/25 08:21 BMI result Body Mass Index 21.5 Tobacco/Smoking Status: Tobacco use Status Tobacco use date assessed 02/05/25 02/05/25 08:29 Patient Tobacco Use Status Never used Tobacco 02/05/25 08:29 Tobacco use type Cigarette 02/05/25 08:29 e-Cigarette/Vaping Use Never Used 02/05/25 08:29 PHQ-9: PHQ-9 Score PHQ-9: Total score 0 02/05/25 08:29 Depression Screening Interpretation: Negative Thrive Assessment: Date of Thrive Assessment Date Thrive assessed 02/05/25 02/05/25 08:29 Currently or been in a relationship where the following occur: I choose not to answer Const General: cooperative, comfortable, no acute distress, alert and awake; No confusion Orientation/consciousness: oriented to person, oriented to place, patient oriented x3 and No confusion HENMT Head: Yes normocephalic Ears: external ears normal and TM's normal bilaterally Face and sinus: No sinus tenderness Mouth: Normal oral and palatal mucosa present and tongue normal Teeth and gingiva: dentition normal and gingiva normal Throat: Yes posterior oropharynx normal, Yes tonsils normal and Yes uvula midline Eyes Conjunctivae: conjunctivae normal Sclerae: sclerae normal Pupils: Equal, round and reactive pupils present EOM: EOMs intact bilaterally Direct Ophthalmoscopy: No no photophobia Neck Neck: Yes no lymphadenopathy, No tender and Yes no JVD Thyroid: Thyroid normal Carotids: no bruits Chest Chest palpation & inspection: no tenderness Resp Effort & Inspection: normal respiratory effort, no audible wheezes, not labored and no stridor Auscultation: no crackles, no rales, no rhonchi and no wheezes Cardio Jugular venous distension: no JVD Rate: regular rate, not bradycardic and not tachycardic Rhythm: regular rhythm Bruits: no carotid bruits Peripheral pulses: Peripheral pulses 2+ throughout GI Inspection: Yes normal to inspection, No abdominal wall ecchymosis and No visible herniation Palpation (GI): Soft to palpation, nontender, no guarding, not rigid and No hepatosplenomegaly present Auscultation: normoactive bowel sounds General: Yes no CVA tenderness Back/Spine/Pelvis Back: no CVA tenderness and No back tenderness Cervical Spine: cervical ROM normal Thoracic/Lumbar Spine: thoracic and lumbar spine normal to inspection, straight leg raise negative bilaterally, No thoraco-lumbar ROM limited and No lumbar spinal tenderness Skin Lesions: no lesions Rashes: no rashes Wounds: no wounds Neuro General: oriented to person, oriented to place, patient oriented x3, CN's II-XI intact bilaterally and No confusion Cranial nerves: Yes Equal, round and reactive pupils present and Yes Normal accommodation reflex present Cognition (Neuro): normal cognition Speech: No Abnormal speech present Gait exam (Neuro): Normal gait present Motor exam (neuro): 5/5 motor strength present throughout Extrem Right upper extremity: full ROM; no cyanosis Left upper extremity: full ROM; no cyanosis Right lower extremity: no edema Left lower extremity: no edema Psych Appearance: grossly normal Mental Status: mental status grossly normal Affect: normal affect Attitude: cooperative Thought process: Normal thought process present Coding Level of Care Code Est Pt Prev Care 40-64y(37577) Diagnoses Annual physical exam Z00.00 Cerebral palsy, unspecified type G80.9 Cerebral palsy type: unspecified type Borderline high cholesterol E78.9 Impaired glucose metabolism R73.09 Irritable bowel syndrome with constipation K58.1 Additional Codes ALANNA-7 Assessment Billing - ALANNA-7 Assessment Tool: ALANNA-7 Assessment 14520 ([id number]) PHQ-9 - 66470 - PHQ-9 Billing: Yes ([id number]) Assessment & Plan Assessment & Plan (1) Annual physical exam: Code(s): Z00.00 - Encounter for general adult medical examination without abnormal findings Category: Medical Plan: As per HPI (2) Cerebral palsy: Code(s): G80.9 - Cerebral palsy, unspecified Category: Medical Qualifiers: Cerebral palsy type: unspecified type Qualified Code(s): G80.9 - Cerebral palsy, unspecified Plan: Patient continues with the use of walker and a wheelchair. Family notes the needs a new wheelchair as his old wheelchair is broken. (3) Borderline high cholesterol: Code(s): E78.9 - Disorder of lipoprotein metabolism, unspecified Category: Medical Plan: Patient's most recent lipid panel showing borderline high total cholesterol. Will continue to work on lifestyle and dietary modifications. Will recheck fasting lipid panel before upcoming annual physical. (4) Impaired glucose metabolism: Code(s): R73.09 - Other abnormal glucose Category: Medical Plan: Patient's most recent fasting blood sugars slightly elevated. Will check an A1c. He will work on lifestyle and dietary modifications. (5) Irritable bowel syndrome with constipation: Code(s): K58.1 - Irritable bowel syndrome with constipation Category: Medical Plan: Patient reports his irritable bowel syndrome symptoms have been fairly stable. Does have dicyclomine and pantoprazole to which he uses with good effect. Orders: Orders Prostate Specific Antigen Scr Today R73.09 - Other abnormal glucose, Z12.5 - Encounter for screening for malignant neoplasm of prostate Lipid Panel Today E78.9 - Disorder of lipoprotein metabolism, unspecified Hemoglobin A1c Today R73.09 - Other abnormal glucose Comprehensive Lanse. Panel Fast Today R73.09 - Other abnormal glucose Complete Blood Count no Diff Today E78.9 - Disorder of lipoprotein metabolism, unspecified
--- OUTSIDE RECORDS SUMMARY | 2025-02-05 08:22 | XMS_ITS | Patient Health Record ---
Author Organization [facility] Address [address] [place] [address] Care Team Providers Care Director Marketing Communications Name Role Phone Nano Morgan MD Primary Care Provider Unavail able Black, Kylie Unavailable [phone] Allergies No Known Allergies Reason For Referral [...] Problem Acquired hammer toe of right foot (3510390019949132) Other hammer toe(s) (acquired), right foot (M20.41) Active confirmed Problem Ulcer of toe of right foot (disorder) (52884072573520005 ) Skin ulcer of toe of right foot, limited to breakdown of skin (L97.511) Active confirmed Problem Localized, primary osteoarthritis of the ankle and/or foot (626585606) Arthritis of joint of lesser toe, right (M19.071) Active confirmed Problem Ulcer of toe of left foot (disorder) (75848455058007787 ) Skin ulcer of toe of left foot, limited to breakdown of skin (L97.521) Active confirmed Vital Signs Blood pressure diastolic 70 mm Hg 02/29/2024 Height 5 ft 2 in in 02/29/2024 Blood pressure systolic 128 mm Hg 02/29/2024 Weight 135 lbs 02/29/2024 BMI 24.69 kg/m2 02/29/2024 Procedures Procedure Date Ordered Date Performed Result Body Sit e 85211-YODREDX NAIL, 6 OR MORE 02/29/2024 N/A 32458-Jyildwym Plate 02/29/2024 N/A 82866- Debride <25 sq cm 02/29/2024 N/A Encounters Encounter Location Date Provider Diagnosis [facility] [address] [address] 02/29/2024 Kylie Ronal Tinea unguium B35.1 ; Pain in right toe(s) M79.674 ; Pain in left toe(s) M79.675 ; Other hammer toe(s) (acquired), right foot M20.41 ; Arthritis of joint of lesser toe, right M19.071 ; Subluxation of metatarsophalangeal joint of toe, initial encounter S93.149A ; Ingrown nail L60.0 and Skin ulcer of toe of right foot, limited to breakdown of skin L97.[address] [facility] [address] 02/29/2024 Kylie Ronal Assessments Encounter Date Diagnosis [...] Treatment Pending Test Test Name Order Date 22760-HUSGNMI NAIL, 6 OR MORE 02/29/2024 61214-Bpnvtoyo Plate 02/29/2024 02896- Debride <25 sq cm 02/29/2024 Insurance Providers Payer Name Payer Address Payer Phone Subscriber Number Group Number Insured Name Patient Relationship to Insured Coverage Start Date Coverage End Date [facility] [employer] S[employer] Claims [address] [place] [phone] [id number] Ollie De Los Santos Self - patient is the insured Medical (General) History Medical History History ICD Code Cerebral palsy Surgical History Surgery Date(Month/Year) knee surgery / legs
--- OUTSIDE RECORDS SUMMARY | 2025-02-05 08:22 | XMS_ITS ---
Author [facility] Address [address] [place] [address] Care Team Providers Care Floorworker Distributor Name Role Phone Cathy LEWIS, Nano Primary Care Provider Unavail able Black, Kylie Unavailable [phone] Allergies No Known Allergies REASON FOR VISIT [...] Problem Acquired hammer toe of right foot (4201826363855068) Other hammer toe(s) (acquired), right foot (M20.41) Active confirmed Problem Localized, primary osteoarthritis of the ankle and/or foot (544634380) Arthritis of joint of lesser toe, right (M19.071) Active confirmed Problem Ulcer of toe of left foot (disorder) (39890544404471239 ) Skin ulcer of toe of left foot, limited to breakdown of skin (L97.521) Active confirmed Problem Ulcer of toe of right foot (disorder) (31087462254644261 ) Skin ulcer of toe of right foot, limited to breakdown of skin (L97.511) Active confirmed Vital Signs Height 5 ft 2 in in 02/29/2024 Weight 135 lbs 02/29/2024 BMI 24.69 kg/m2 02/29/2024 Blood pressure systolic 128 mm Hg 02/29/20 24 Blood pressure diastolic 70 mm Hg 024 Procedures Procedure Date Ordered Date Performed Result Body Sit e 88374-VOVQMFP NAIL, 6 OR MORE 02/29/2024 N/A 54049-Dvnfhzya Plate 02/29/2024 N/A 61405- Debride <25 sq cm 02/29/2024 N/A Encounters Encounter Location Date Provider Diagnosis [facility] [address] [place] [address] 02/29/2024 Kylie Black Tinea unguium B35.1 ; [...] INSTRUCTIONS.pdf) Pending Test Test Name Order Date 22841-RJBQJTE NAIL, 6 OR MORE 02/29/2024 40008-Iralhlir Plate 02/29/2024 64192- Debride <25 sq cm 02/29/2024 Next Appt [...] Motrin was recommended for pain or discomfort (13196) Anesthesia was accomplished TOP ICALLY with Lidocaine [...] as necessary. Patient chooses, no pharmaceutical tx (45091) Debride skin< 25 sq cm Open wound [...] of the wound post debridement is stable (09418) Progress Notes * DASH Ollie ADOB:1975 (49 yo M)Acc No.[id number]:02/29/2024 Progress Notes Patient:?Ollie De Los Santos A Provider:?Kylie Villeda DPM :1975???Age:49 Y???Sex:Male Mukund e:02/29/2024 Address:[address] [place] [address] Pcp:Nano Morgan MD Subjective: * Chief Complaints: [...] , Female , who serves as , Furnace Combustion Tester/Cloth Neutralizer , and/who is physically present in exam [...] treatment, Nonapplicable? Plan: * Treatment: 2.?Ingrown nail?Procedure: 09625-Uemxwfat Plate 3.?Skin ulcer of toe of righ t foot, limited to breakdown of skin?Procedure: 52607- Debride <25 sq cm Notes: Patient Educated [...] as necessary. Patient chooses, no pharmaceutical tx (05902).?Debride skin< 25 sq cm:?Open wound?Physician of record [...] of the wound post debridement is stable (69999).?Nail Avulsion:?Location?Lateral nail border , T5.?Anesthesia?was accomplished TOPICALLY [...] Motrin was recommended for pain or discomfort (18691).? * Procedure Codes:?64699 DEBRI DE NAIL, 6 OR MORE, Modifiers: XS 63681 Avulsion Plate, Modifiers: T5 02742 ACTIVE WOUND CARE/20 CM OR <, Modifiers: [...] Villeda DPM Date:?2023 Generated for Gita miranda/Sofie/Elisabeth on:?02/05/2025 08:22 AM EDT History and Physical Notes * [...] , Female , who serves as , Furnace Combustion Tester/Cloth Neutralizer , and/who is physically present in exam [...]
--- OUTSIDE RECORDS SUMMARY | 2025-02-05 08:23 | XMS_ITS ---
Author Organization [facility] Address [address] [place] [address] Care Team Providers Care Gizzard Peeler Name Role Phone Cathy LEWIS, Nano Primary Care Provider Unavail able Black, Kylie Unavailable [phone] REASON FOR VISIT X-ray Report Request Encounters Encounter Location Date Provider Diagnosis [address] [address] 02/29/2024 Kylie Black Plan Of Treatment No Information Progress Notes * Ollie BOWLING ADOB:1975 (49 yo M)Acc No.[id number]:02/29/2024 Patient:?Ollie Bowling :1975???Age:49 Y???Sex:Male Address:[address] [place] [address] * true * Date:? Generated for Gita miranda/Sofie/eTransmitting on:?02/05/2025 08:22 AM EDT
== END 2025-02-05 08:50 | disposition home or self-care (01) ==
LOC: HO.HMCH 08:16
PROVIDERS: PCP Internal Medicine; Visit Provider Physician Assistant
DX: Z00.00 Encounter for general adult medical examination without abnormal findings (principal); G80.9 Cerebral palsy, unspecified; E78.9 Disorder of lipoprotein metabolism, unspecified; R73.09 Other abnormal glucose; K58.1 Irritable bowel syndrome with constipation

== ENCOUNTER → 2025-02-05 08:15 | Outpatient (BNVA) | payer OTHER, SELFPAY | PROVIDERS: PCP Internal Medicine; Visit Provider Physician Assistant | DX: Z00.00 Encounter for general adult medical examination without abnormal findings (principal); G80.9 Cerebral palsy, unspecified; E78.9 Disorder of lipoprotein metabolism, unspecified; R73.09 Other abnormal glucose; K58.1 Irritable bowel syndrome with constipation | CPT/HCPCS: 96127; 99396 ==

== ENCOUNTER 2025-08-11 07:27 | Outpatient (AMB) | payer OTHER, SELFPAY ==
--- OUTSIDE RECORDS SUMMARY | 2025-08-11 07:29 | XMS_ITS | Patient Health Record ---
Author Organization [facility] Address [address] [place] [address] Care Team Providers Care House Servant Name Role Phone Nano Morgan MD Primary Care Provider Unavail able Black, Kylie Unavailable [phone] Allergies No Known Allergies Reason For Referral [...] Problem Acquired hammer toe of right foot (5082919191108936) Other hammer toe(s) (acquired), right foot (M20.41) Active confirmed Problem Ulcer of toe of right foot (disorder) (22800129864433097 ) Skin ulcer of toe of right foot, limited to breakdown of skin (L97.511) Active confirmed Problem Localized, primary osteoarthritis of the ankle and/or foot (296248331) Arthritis of joint of lesser toe, right (M19.071) Active confirmed Problem Ulcer of toe of left foot (disorder) (07868560090391470 ) Skin ulcer of toe of left foot, limited to breakdown of skin (L97.521) Active confirmed Plan Of Treatment Pending Test Test Name Order Date 41134-TSIKPUU NAIL, 6 OR MORE 02/29/2024 47200-Tphsrgng Plate 02/29/2024 07207- Debride <25 sq cm 02/29/2024 Insurance Providers Payer Name Payer Address Payer Phone Subscriber Number Group Number Insured Name Patient Relationship to Insured Coverage Start Date Coverage End Date [facility] [employer] Claims [address] [place] [id number] Ollie De Los Santos Self - patient is the insured Medical (General) History Medical History History ICD Code Cerebral palsy Surgical History Surgery Date(Month/Year) knee surgery / legs
--- OUTSIDE RECORDS SUMMARY | 2025-08-11 07:30 | XMS_ITS | Patient Health Record ---
Author Organization [facility] Address [address] [place] [id number] Care Team Providers Care Radiation Protection Technician Name Role Phone Tevin Salgado [phone] Reason For Referral No Information Plan Of Treatment No Information
[2025-08-11 07:51] VITALS: BP 122/70; PULSE 96; O2SAT 99; BMI 18.7
--- NOTE | 2025-08-11 07:51 | MHC.PC.OV ---
Vital Signs 08/11/25 07:51 Height 5 ft 2 in Weight 102 lb BMI 18.7 BP 122/70 Blood Pressure Location Lt brachial Position Sitting Pulse 96 Pulse Source Pulse Oximeter Pulse Oximetry (%) 99 Oxygen Delivery Method Room Air Intake Visit Reasons: f/u labs / CP Allergies No Known Allergies (No Known Allergies*) Allergy (Verified 08/11/25 08:03) Medication List - Last Reconciled 08/11/25 by Tyrone Chang PA-C bisacodyl (Dulcolax (bisacodyl)) 10 mg (2 x 5 mg) PO BEDTIME 2 days cholecalciferol (vitamin D3) 25 mcg PO DAILY 90 days dicyclomine 20 mg PO QID naproxen 250 mg PO BID PRN 90 days pantoprazole 40 mg PO DAILY peg 3350-electrolytes 236-22.74-6.74 -5.86 gram (Golytely) 240 mL PO Q10M 1 day Shower Chair As directed [wheel chair NEED FOR [employer]yst 5VX] Tobacco use date assessed: 02/05/25 Dental Screening Dental Screen Date: 02/05/25 HPI f/u labs / CP HPI Details Patient is a 50 year-old male here today for follow-up visit. He presents today with his mother whom gives most of history. Patient has a past medical history significant cerebral palsy, GERD and irritable bowel syndrome. .. Cerebral palsy: Has good support with family. Continues to use a walker for ambulation assistance. Patient's family reports that Ollie needs a new walker, new paper Rx will be faxed to patient's insurance .. He otherwise reports his GI symptoms from his IBS and GERD have been well controlled with current medication he is taking. [facility] Medical History Annual physical exam Screening for diabetes mellitus (DM) Colon cancer screening Screening for hypercholesterolemia Screening for hypothyroidism IBS (irritable bowel syndrome) GERD (gastroesophageal reflux disease) Cerebral palsy Surgical History History of colonoscopy History of surgery on lower extremity History of esophagogastroduodenoscopy (EGD) Family History Father Myocardial infarction Mother Diabetes mellitus HTN (hypertension) Myocardial infarction, Onset Age: 66 Brother Cerebral palsy Maternal Grandfather Skin cancer Maternal Grandmother Myocardial infarction Social History Household Members: Family Housing: House Alcohol intake: never Patient Tobacco Use Status: Never used Tobacco Tobacco use type: Cigarette e-Cigarette/Vaping Use: Never Used Second Hand Smoke Exposure: No service: No Current occupational status: disabled Cognitive needs: Yes (Walker) Hearing needs: No Vision needs: No Questionnaire PHQ-9 Over the last 2 weeks, how often have you been bothered by any of the following problems? 1. Little interest or pleasure in doing things: not at all 2. Feeling down, depressed, or hopeless: not at all 3. Trouble falling or staying asleep, or sleeping too much: not at all 4. Feeling tired or having little energy: not at all 5. Poor appetite or overeating: not at all 6. Feeling bad about yourself - or that you are a failure or have let yourself or your family down: not at all 7. Trouble concentrating on things, such as reading the newspaper or watching television: not at all 8. Moving or speaking so slowly that other people could have noticed. Or the opposite - being so fidgety or restless that you have been moving around a lot more than usual: not at all 9. Thoughts that you would be better off or of hurting yourself in some way: not at all Total score: 0 Depression Screening Interpretation: Negative Depression Screening Done: Yes 22346 - PHQ-9 Billing: Yes Source: Developed by Drs. Tevin Mg, Claudia Douglas, Jet Urbano and colleagues, with an educational desiree from [employer]. Thrive Questionnaire Date Thrive assessed: 02/05/25 I am a: Patient What is your living situation today?: I have a steady place to live Within the past 12 months, did the food you bought not last and you didn't have the money to get more?: I choose not to answer this question Within the past 12 months, did you worry whether your food would run out before you got money to buy more?: I choose not to answer this question Do you have trouble paying for medicines?: I choose not to answer this question Do you have trouble getting transportation to medical appointments?: No Do you have trouble paying your heating and electricity bill?: I choose not to answer this question Do you have trouble taking care of your child, family member or friend?: I choose not to answer this question Do you have trouble with day-to-day activities such as bathing, preparing meals, shopping, managing finances, etc.?: No Are you currently unemployed and looking for a job?: I choose not to answer this question Are you interested in more education?: I choose not to answer this question Please select the resources that you would like help with: None Currently or been in a relationship where the following occur: I choose not to answer THRIVE Score: 0 ALANNA-7 AMB Questionnaire ALANNA-7 Date ALANNA - 7 assessed: 02/05/25 Source: Developed by Drs. Tevin Mg, Claudia Douglas, Jet Urbano and colleagues, with an educational desiree from [employer]. Review of Systems Const Denies headache(s) Eyes Denies loss of vision ENT Denies vertigo, Denies dizziness, Denies headache(s) and Denies sore throat Card Denies chest pain, Denies leg edema and Denies lightheadedness Resp Denies cough, Denies hemoptysis and Denies wheezing GI Denies abdominal pain, Denies melena, Denies constipation, Denies diarrhea and Denies vomiting Denies dysuria, Denies urinary frequency and Denies urinary urgency Musc Denies arthralgias, Denies joint swelling, Denies numbness and Denies tingling Neuro Denies Abnormal speech present, Denies behavioral changes, Denies vertigo, Denies dizziness, Denies headache(s), Denies loss of vision, Denies memory loss, Denies numbness and Denies tingling Psych Denies anxiety, Denies behavioral changes, Denies depression, Denies memory loss and Denies panic attacks [place]/Lymph Denies easy bleeding and Denies easy bruising Aller/Immun Denies wheezing Physical exam (Primary Care) Vital Signs: Last Vital Signs Pulse 96 08/11/25 07:51 BP 122/70 08/11/25 07:51 Pulse Ox 99 08/11/25 07:51 Oxygen Delivery Method Room Air 08/11/25 07:51 BMI result Body Mass Index 18.7 Tobacco/Smoking Status: Tobacco use Status Tobacco use date assessed 02/05/25 08/11/25 07:53 Patient Tobacco Use Status Never used Tobacco 08/11/25 07:53 Tobacco use type Cigarette 08/11/25 07:53 e-Cigarette/Vaping Use Never Used 08/11/25 07:53 PHQ-9: PHQ-9 Score PHQ-9: Total score 0 08/11/25 07:53 Depression Screening Interpretation: Negative Thrive Assessment: Date of Thrive Assessment Date Thrive assessed 02/05/25 08/11/25 07:53 Currently or been in a relationship where the following occur: I choose not to answer Const General: healthy appearing, no acute distress, alert and awake Nutritional Appearance: well nourished Orientation/consciousness: oriented to person, oriented to place and oriented to time HENMT Ears: TM's normal bilaterally General nose exam: Normal nasal mucous membranes and turbinates present Eyes Conjunctivae: conjunctivae normal Sclerae: sclerae normal Pupils: Equal, round and reactive pupils present Neck Neck: Yes no lymphadenopathy and Yes no JVD Thyroid: Thyroid normal Carotids: no bruits Resp Effort & Inspection: normal respiratory effort and not tachypneic Auscultation: no crackles, no rales, no rhonchi and no wheezes Cardio Rate: regular rate Rhythm: regular rhythm Heart sounds: no murmurs and normal S1 and S2 GI Palpation (GI): Soft to palpation, nontender, no hepatomegaly and no splenomegaly Auscultation: normal bowel sounds Skin General skin exam: no rashes or lesions noted and dry skin Neuro General: oriented to person, oriented to place and oriented to time Cranial nerves: Yes Equal, round and reactive pupils present Speech: No Abnormal speech present Gait exam (Neuro): Normal gait present Motor exam (neuro): no tremor noted Extrem Right upper extremity: full ROM Left upper extremity: full ROM Right lower extremity: full ROM; no edema Left lower extremity: full ROM; no edema Psych Mental Status: mental status grossly normal Speech and movement: Normal speech and movement present Affect: normal affect Attitude: cooperative Thought process: Normal thought process present Coding Level of Care Code Est Pt Level 3 (89327) Diagnoses Cerebral palsy, unspecified type G80.9 Cerebral palsy type: unspecified type Borderline high cholesterol E78.9 Impaired glucose metabolism R73.09 Additional Codes PHQ-9 - 35305 - PHQ-9 Billing: Yes ([id number]) Assessment & Plan Assessment & Plan (1) Cerebral palsy: Code(s): G80.9 - Cerebral palsy, unspecified Category: Medical Qualifiers: Cerebral palsy type: unspecified type Qualified Code(s): G80.9 - Cerebral palsy, unspecified Plan: Patient continues with the use of walker and a wheelchair. Family notes the needs a new walker as his old walker is very old and breaking down. (2) Borderline high cholesterol: Code(s): E78.9 - Disorder of lipoprotein metabolism, unspecified Category: Medical Plan: Patient's most recent lipid panel showing borderline high total cholesterol. Will continue to work on lifestyle and dietary modifications. Will recheck fasting lipid panel before upcoming annual physical. (3) Impaired glucose metabolism: Code(s): R73.09 - Other abnormal glucose Category: Medical Plan: Patient's most recent fasting blood sugars slightly elevated. Will check an A1c. He will work on lifestyle and dietary modifications. Medications: New [walker] As directed 1 ea 0RF G80.9 - Cerebral palsy, unspecified
== END 2025-08-11 08:17 | disposition home or self-care (01) ==
LOC: HO.HMCH 07:27
PROVIDERS: PCP Internal Medicine; Visit Provider Physician Assistant
DX: G80.9 Cerebral palsy, unspecified (principal); E78.9 Disorder of lipoprotein metabolism, unspecified; R73.09 Other abnormal glucose

== ENCOUNTER → 2025-08-11 07:27 | Outpatient (BNVA) | payer OTHER, SELFPAY | PROVIDERS: PCP Internal Medicine; Visit Provider Physician Assistant | DX: R73.09 Other abnormal glucose (principal); E78.9 Disorder of lipoprotein metabolism, unspecified; G80.9 Cerebral palsy, unspecified | CPT/HCPCS: 96127; 99212 ==